=== PATIENT | female | born 1990 | race Caucasian/White ===

== ENCOUNTER 2017-01-12 21:51 | Emergency (ER) | payer MEDICAID, OTHER ==
[2017-01-12 22:43] VITALS: BP 105/70
--- NOTE | 2017-01-13 00:30 | EDM.PDOC ---
ED HPI GI/ABDOMINAL - General Chief Complaint: Gastrointestinal Problem Stated Complaint: LEFT UPPER ABD PAIN Time Seen by Provider: 01/12/17 22:49 Source: Reports: Patient History Limitations: Reports: No limitations - History of Present Illness INITIAL COMMENTS - FREE TEXT/NARRATIVE: This patient comes in complaining of bleeding ulcers. She has had gastric ulcers in the past about 2 years ago and these were confirmed by EGD. She takes pantoprazole 40 mg daily and usually does well with that. However today she said just a little bit of pain and she's had diarrhea about 5 times today all of it melanotic. She said she's been under a lot of stress today. She hasn 't vomited any blood or coffee grounds but she says she can taste blood in her mouth. She denies taking any Pepto-Bismol. 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 - Infectious Disease History Infectious Disease History: Reports: Chicken pox - Past Surgical History GI Surgical History: Reports: EGD Other Musculoskeletal Surgeries/Procedures:: ganglian cysts removed from wrists x 3 Social & Family History - Tobacco Use Smoking Status *Q: Current Every Day Smoker Years of Tobacco use: 8 Packs/Tins Daily: 0.5 Month Tobacco Last Used: 01/2015 Second Hand Smoke Exposure: No - Caffeine Use Caffeine Use: Reports: Coffee, Soda - Alcohol Use Days Per Week of Alcohol Use: 1 Number of Drinks Per Day: 2 Total Drinks Per Week: 2 - Recreational Drug Use Recreational Drug Use: No ED ROS GENERAL - Review of Systems Review Of Systems: ROS reveals no pertinent complaints other than HPI. ED EXAM, GI/ABD - Physical Exam Exam: See Below Exam Limited By: No limitations General Appearance: alert, WD/WN, no apparent distress Eyes: bilateral: normal appearance Respiratory/Chest: lungs clear Cardiovascular: regular rate, rhythm, no murmur GI/Abdominal: soft, non tender Rectal (Female) Exam: Other (Rectal vault was completely empty) Skin Exam: Warm, Dry Course - Vital Signs Last Recorded V/S: Last Vital Signs Temp 36.4 C 01/12/17 22:38 Pulse 75 01/12/17 22:38 Resp 16 01/12/17 22:38 BP 105/70 01/12/17 22:38 Pulse Ox 100 01/12/17 22:38 - Orders/Labs/Meds Labs: Laboratory Tests 01/12/17 01/12/17 01/12/17 Range/Units 23:15 23:30 23:30 WBC 8.1 (4.5-11.0) K/uL RBC 4.37 (3.30-5.50) M/uL Hgb 13.2 (12.0-15.0) g/dL Hct 39.3 (36.0-48.0) % MCV 90 (80-98) fL MCH 30 (27-31) pg MCHC 34 (32-36) % Plt Count 253 (150-400) K/uL Neut % (Auto) 51 (36-66) % Lymph % (Auto) 38 (24-44) % [place] % (Auto) 9 H (2-6) % Eos % (Auto) 1 L (2-4) % Baso % (Auto) 1 (0-1) % PT 11.0 (9.5-12.0) sec INR 1.04 (0.80-1.20) APTT 28.4 (27.0-36.0) sec Sodium 140 (140-148) mmol/L Potassium 3.7 (3.6-5.2) mmol/L Chloride 104 (100-108) mmol/L Carbon Dioxide 27 (21-32) mmol/L Anion Gap 8.6 (5.0-14.0) mmol/L BUN 11 (7-18) mg/dL Creatinine 0.9 (0.6-1.0) mg/dL Est Cr Clr Drug Dosing 100.35 mL/min Estimated GFR (MDRD) > 60 (>60) Glucose 88 (74-106) mg/dL Calcium 8.9 (8.5-10.1) mg/dL - Re-Assessments/Exams Free Text/Narrative Re-Assessment/Exam: 01/13/17 00:27 Labs were reviewed with the patient. She was never able to produce a stool sample. I spoke with Dr. Rabago and he can do an EGD on Saturday. The nurse is arranging this. I would like her to bring a stool sample for Hemoccult and H. pylori antigen. We'll place her on triple therapy with amoxicillin clarithromycin and pantoprazole. Departure - Departure Time of Disposition: 00:28 Disposition: Home, Self-Care 01 Condition: fair Clinical Impression: Bleeding gastric ulcer Forms: ED Department Discharge Additional Instructions: Bring a stool sample and will tested for blood as well as the presence of the bacteria H. pylori which is known to cause ulcers. Take the following medications, Protonix 40 mg twice daily for 14 days, amoxicillin 500 mg 2 capsules twice daily for 14 days and clarithromycin 500 mg twice daily also for [address] Rabago will plan to scope you on Saturday and this is being arranged. Return to the ER at any time if needed
== END 2017-01-13 00:45 | disposition home or self-care (01) ==
LOC: JP.ED 21:51
DX: K25.4 Chronic or unspecified gastric ulcer with hemorrhage (principal); F17.210 Nicotine dependence, cigarettes, uncomplicated; Z98.890 Other specified postprocedural states; Z79.899 Other long term (current) drug therapy; Z91.048 Other nonmedicinal substance allergy status
CPT/HCPCS: 36415; 80048; 85025; 85610; 85730; 99284

== ENCOUNTER 2017-01-14 11:36 | Day surgery (SDC) | payer MEDICAID ==
[2017-01-14] MEDS ORDERED: Lactated Ringers 1,000 ML IV SCH (12:45)
[2017-01-14] MEDS ORDERED: fentaNYL 100 MCG/2 ML SDV ONE (13:27)
[2017-01-14] MEDS ORDERED: Propofol 200 MG/20 ML SDV ONE (13:27)
[2017-01-14] MEDS ORDERED: Midazolam 1 MG/ML 2 ML SDV ONE (13:27)
[2017-01-14 15:08] VITALS: BP 110/62
--- NOTE | 2017-01-15 08:04 | OR ---
DATE OF PROCEDURE: 01/14/2017 PREOPERATIVE DIAGNOSES: History of peptic ulcer disease, and abdominal pain. POSTOPERATIVE DIAGNOSIS: History of peptic ulcer disease, abdominal pain, gastritis, and bile in the stomach. PROCEDURE: Esophagogastroduodenoscopy with gastric biopsies for CLOtest and for pathology to look for Helicobacter pylori. ANESTHESIA: IV anesthesia with monitored anesthesia care. INDICATION: This 26-year-old, white female, is referred for upper endoscopy. She has abdominal pain. Apparently, she was passing some blood earlier this weekend. She has a history of peptic ulcer disease. I counseled her for upper endoscopy with possible biopsy including risks and alternatives, and she gave her informed consent to proceed. DESCRIPTION OF PROCEDURE: The patient was placed in the left lateral decubitus position. IV anesthesia was administered by the Anesthesia Service. Time-out was held. The flexible video Olympus upper endoscope was passed through her mouth, down her esophagus, and into her stomach. We encountered some bile here, which was aspirated free. The scope was easily passed through the pylorus into the duodenum reaching its third portion. The scope was then slowly withdrawn, examining the mucosa throughout. The duodenal mucosa appeared unremarkable. No ulcers or inflammation was seen. The scope was brought up to the pylorus, there were no ulcers seen here; however, there was evidence of gastritis with erythematous streaking emanating from the pylorus. We obtained gastric biopsies for CLOtest and sent for pathology to look for Helicobacter pylori. The scope was retroflexed. The most proximal stomach appeared unremarkable. The scope was straightened and brought to the GE junction. This appeared unremarkable. The scope was then brought up through the unremarkable appearing esophagus and was removed. Ruy Trejo MD /[id number] MTDD
== END 2017-01-14 15:14 | disposition home or self-care (01) ==
LOC: JP.SDS 11:36
PROVIDERS: ATTEND Surgery
PROC: 0DB68ZX Excision of Stomach, Via Natural or Artificial Opening Endoscopic, Diagnostic (ICD-10-PCS; principal; 2017-01-14)
DX: K29.50 Unspecified chronic gastritis without bleeding (principal); A04.8 Other specified bacterial intestinal infections; Z87.11 Personal history of peptic ulcer disease; Z91.09 Other allergy status, other than to drugs and biological substances
CPT/HCPCS: 43239; 87081; J2250; J2704; J3010; J7120; 88305

== ENCOUNTER 2018-11-08 22:52 | Inpatient (IN) | payer MEDICAID ==
[2018-11-08] MEDS ORDERED: Sodium Chloride 0.9% 10 ML Syringe FLUSH PRN ×2 (23:29→23:57)
[2018-11-08] MEDS ORDERED: ePHEDrine 50 MG/ML SDV IVPUSH PRN (23:43)
[2018-11-08] MEDS ORDERED: Lactated Ringers 1,000 ML IV SCH (23:45)
[2018-11-08] MEDS ORDERED: Ondansetron 4 MG/2 ML SDV IV PRN (23:57)
--- NOTE | 2018-11-09 00:15 | PCM.LDHP ---
L&D History of Present Illness - General Date of Service: 11/09/18 Admit Problem/Dx: Patient Status Order with Admit Dx/Problem 11/08/18 23:57 Patient Status [ADT] Routine Admission Diagnosis/Problem Admission Diagnosis/Problem - Related Data Allergies/Adverse Reactions: Allergies Allergy/AdvReac Type Severity Reaction Status Date / Time nickel Allergy Severe Rash Verified 09/13/15 00:46 Home Medications: Home Meds Ondansetron HCl [Zofran] 4 mg PO Q8HR PRN 08/09/18 [History] Pnv No.121/Iron/Folic Acid [ Multivitamin Tablet] 1 each PO DAILY [History] Past Medical History - Past Health History Medical/Surgical History: Denies Medical/Surgical History HEENT History: Reports: Impaired Vision Other HEENT History: wears glasses Gastrointestinal History: Reports: PUD Other Gastrointestinal History: stomach ulcer X3 Genitourinary History: Reports: None 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 (See Below) : 1 (ASAD-11/10/2018) Para: 0 Other OB/BYN History: 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 Musculoskeletal History: Reports: None - Infectious Disease History Infectious Disease History: Reports: Chicken Pox - Past Surgical History Musculoskeletal Surgical History: Reports: Ganglion Cyst, Other (See Below) Social & Family History - Caffeine Use Caffeine Use: Reports: Soda H&P Review of Systems - Review of Systems: Review Of Systems: See Below General: Reports: No Symptoms HEENT: Reports: No Symptoms Pulmonary: Reports: No Symptoms Cardiovascular: Reports: No Symptoms Gastrointestinal: Reports: No Symptoms Genitourinary: Reports: No Symptoms Musculoskeletal: Reports: No Symptoms Skin: Reports: No Symptoms Psychiatric: Reports: No Symptoms Neurological: Reports: No Symptoms Hematologic/Lymphatic: Reports: No Symptoms Immunologic: Reports: No Symptoms L&D Exam - Exam Exam: See Below - Vital Signs Vital Signs: Last Vital Signs Temp 36.2 C 11/08/18 23:35 Pulse 74 11/08/18 23:35 Resp 20 11/08/18 23:35 BP 114/73 11/08/18 23:35 Pulse Ox - OB Specific Contraction Intensity: Strong Movement: Active Heart Tones: Present Heart Rate (FHR) Variability: Moderate (6-25 bmp) Presentation: Vertex - Rodriguez Score Rodriguez Score Cervix Position: Anterior Rodriguez Score Consistency: Soft Rodriguez Score Effacement: >80% Rodriguez Score Dilation: > 5 cm Rodriguez Score Infant's Station: -1 ,0 Rodriguez Score Total: 12 - Exam General: Alert, Oriented HEENT: PERRLA, Conjunctiva Clear, EACs Clear, EOMI, Hearing Intact, Mucosa Moist & [place], Nares Patent, Normal Nasal Septum, Posterior Pharynx Clear, TMs Clear Neck: Supple, Trachea Midline Lungs: Clear to Auscultation, Normal Respiratory Effort Cardiovascular: Regular Rate, Regular Rhythm GI/Abdominal Exam: Normal Bowel Sounds, Soft, Non-Tender, No Organomegaly, No Distention, No Abnormal Bruit, No Mass, Pelvis Stable Rectal Exam: Normal Exam, Normal Rectal Tone Genitourinary: Normal external exam, Normal bimanual exam, Normal speculum exam Back Exam: Normal Inspection, Full Range of Motion Extremities: Normal Inspection, Normal Range of Motion, Non-Tender, No Pedal Edema, Normal Capillary Refill Skin: Warm, Dry, Intact Neurological: Cranial Nerves Intact, Reflexes Equal Bilateral Psychiatric: Alert, Normal Affect, Normal Mood - Patient Data Lab Results Last 24 hrs: Laboratory Results - last 24 hr 11/08/18 11/08/18 Range/Units 23:09 23:37 WBC 13.2 H (4.5-11.0) K/uL RBC 3.53 (3.30-5.50) M/uL Hgb 11.4 L (12.0-15.0) g/dL Hct 32.4 L (36.0-48.0) % MCV 92 (80-98) fL MCH 32 H (27-31) pg MCHC 35 (32-36) % Plt Count 231 (150-400) K/uL Neut % (Auto) 72 H (36-66) % Lymph % (Auto) 20 L (24-44) % [place] % (Auto) 8 H (2-6) % Eos % (Auto) 1 L (2-4) % Baso % (Auto) 0 (0-1) % Membrane Rupture Positive H (NEGATIVE) Result Diagrams: 11/08/18 23:37 - Problem List (1) SNOMED Code(s): 25843177 ICD Code: Z34.90 - ENCNTR FOR SUPRVSN OF NORMAL , UNSP, UNSP TRIMESTER Status: Acute Current Visit: Yes Qualifiers: Weeks of gestation: 39 weeks Qualified Code(s): Z3A.39 - 39 weeks gestation of (2) Spontaneous rupture of membranes SNOMED Code(s): 107851567 ICD Code: HAD0628 - Status: Acute Current Visit: Yes (3) Labor established SNOMED Code(s): 63262263 ICD Code: [id number] - Status: Acute Current Visit: Yes Problem List Initiated/Reviewed/Updated: Yes Orders Last 24hrs: Active Orders 24 hr Category Date Time Status Patient Status [ADT] Routine ADT 11/08/18 23:57 Active Ambulate [RC] PER UNIT ROUTINE Care 11/08/18 23:57 Active Communication Order [RC] ASDIRECTED Care 11/08/18 23:57 Active Heart Tones [RC] PER UNIT ROUTINE Care 11/08/18 23:57 Active Non Stress Test [RC] Click to Edit Care 11/08/18 23:57 Active May Shower [RC] ASDIRECTED Care 11/08/18 23:57 Active Notify Provider Vital Signs [RC] PRN Care 11/08/18 23:57 Active Notify Provider [RC] PRN Care 11/08/18 23:57 Active OB Check [OM.PC] Click to Edit Care 11/08/18 23:00 Ordered Peripheral IV Care [RC] . DIRECTED Care 11/08/18 23:29 Active Up ad [place] [RC] ASDIRECTED Care 11/08/18 23:57 Active VTE/DVT Education [RC] Click to Edit Care 11/09/18 00:03 Active Vital Signs [RC] PER UNIT ROUTINE Care 11/08/18 23:57 Active DRUG SCREEN, URINE [URCHEM] Routine Lab 11/08/18 23:57 Ordered UA W/MICROSCOPIC [URIN] Routine Lab 11/08/18 23:57 Ordered Lactated Ringers [Ringers, Lactated] 1,000 ml Med 11/08/18 23:45 Active IV BOLUS Ondansetron [Zofran] Med 11/08/18 23:57 Ordered 4 mg IV Q4H PRN Oxytocin/Normal Saline [Pitocin in NS 20 Units/1,000 ML Med 11/09/18 00:07 Ordered ] 20 unit in 1,000 ml IV ONETIME Sodium Chloride 0.9% [Saline Flush] Med 11/08/18 23:29 Active 10 ml FLUSH ASDIRECTED PRN Sodium Chloride 0.9% [Saline Flush] Med 11/08/18 23:57 Ordered 10 ml FLUSH ASDIRECTED PRN ePHEDrine [ePHEDrine sulfate] Med 11/08/18 23:43 Active 5 mg IVPUSH ONETIME PRN DVT/VTE Prophylaxis Reflex [OM.PC] Routine Oth 11/08/18 23:57 Ordered Peripheral IV Insertion Adult [OM.PC] Routine Oth 11/08/18 23:29 Ordered Saline Lock Insert [OM.PC] Routine Oth 11/08/18 23:57 Ordered Resuscitation Status Routine Resus Stat 11/08/18 23:57 Ordered Medication Orders Ephedrine Sulfate (Ephedrine Sulfate) 5 mg IVPUSH ONETIME PRN PRN Reason: Hypertension Last Admin: 11/09/18 00:00 Dose: 50 mg Lactated Ringer's (Ringers, Lactated) 1,000 mls @ 999 mls/hr IV BOLUS HANNAH Stop: 11/09/18 00:46 Oxytocin/Sodium Chloride (Pitocin In Ns 20 Units/1,000 Ml) 20 unit in 1,000 mls @ 2,997 mls/hr IV ONETIME ONE; Protocol Stop: 11/09/18 00:27 Ondansetron HCl (Zofran) 4 mg IV Q4H PRN PRN Reason: Nausea/Vomiting Sodium Chloride (Saline Flush) 10 ml FLUSH ASDIRECTED PRN PRN Reason: Keep Vein Open Sodium Chloride (Saline Flush) 10 ml FLUSH ASDIRECTED PRN PRN Reason: Keep Vein Open Assessment/Plan Comment:: 11/09/2018 28 yo here at 39 6/7 weeks gestation and claims her water broke at home around 2215 Amnisure positive SVE-8/90/-1 Contractions regular FHTs category one Plan- Patient requests an epidural at this time Continue to monitor labor Continue to monitor FHTS Plan and anticipate a vaginal delivery
[2018-11-09] MEDS ORDERED: Ropivacaine 100 ML ONE (00:48)
[2018-11-09] MEDS ORDERED: ePHEDrine 50 MG/ML SDV IV PRN (00:50)
[2018-11-09] MEDS ORDERED: Naloxone 0.4 MG/ML SDV IVPUSH PRN (00:50)
[2018-11-09] MEDS ORDERED: Ropivacaine 100 ML EPIDUR SCH (00:50)
[2018-11-09] MEDS ORDERED: Lactated Ringers 1,000 ML IV SCH (01:45)
--- NOTE | 2018-11-09 02:02 | ANES ---
DATE OF SERVICE: 11/09/2018 INDICATIONS: Debora is a 28-year-old female, patient of Jennifer Mcleod, #[id number]. She is in her obstetric unit, I was requested to consult patient for OB epidural. Upon arrival, I found a 28-year-old female, healthy. I discussed with her as well as reviewed her history and found no contraindication to labor epidural placement. I discussed with her in depth the procedure as well as the risks and benefits, she was okay to proceed and consent was received. DESCRIPTION OF PROCEDURE: I had her seated at the edge of the bed. Betadine prep x3 to the lumbar region. Sterile drape was placed, 1% lidocaine skin wheal as well as deep at the L2- L3 region above the lumbar tattoo, 17-gauge Tuohy was placed to loss of resistance. Negative CSF, negative heme, and negative paresthesia. I then inserted the catheter to 13 cm. I removed the needle, secured the catheter. I applied test dose of 3 mL of 1.5% lidocaine with 1:200,000 epinephrine with negative sequelae. She tolerated the procedure quite well. The catheter was then secured to an infusion device where I was infusing 12 mL an hour of the same of 0.2% ropivacaine. Again please refer to nurse's notes for vital signs and neuro status, which were unchanged, within normal limits and again she tolerated the procedure quite well. Uriah Rodriguez CRNA /[id number]
[2018-11-09] MEDS ORDERED: Sodium Chloride 0.9% 1,000 ML IV ONE (02:35)
[2018-11-09] MEDS ORDERED: Methylergonovine 0.2 MG/1 ML Amp ONE (02:48)
[2018-11-09] MEDS ORDERED: Carboprost Tromethamine 250 MCG/1 ML Amp ONE (02:48)
[2018-11-09] MEDS ORDERED: Misoprostol 200 MCG Tab ONE (02:48)
[2018-11-09] MEDS ORDERED: Carboprost Tromethamine 250 MCG/1 ML Amp IM ONE (02:50)
[2018-11-09] MEDS ORDERED: Methylergonovine 0.2 MG/1 ML Amp IM ONE (02:50)
[2018-11-09] MEDS ORDERED: Misoprostol 200 MCG Tab PO ONE (02:50)
[2018-11-09] MEDS ORDERED: Lanolin 100% Cream 40 GM Tube TOP PRN (03:24)
[2018-11-09] MEDS ORDERED: Benzocaine 20% Top Spray 56 GM Bottle TOP PRN (03:24)
[2018-11-09] MEDS ORDERED: Witch Hazel Medicated Pads 100/Jar TOP PRN (03:24)
[2018-11-09] MEDS ORDERED: Hydrocortisone 2.5% Crm 30 GM Tube TOP PRN (03:24)
[2018-11-09] MEDS ORDERED: Ibuprofen 200 MG Tab, 24 Tab Bulk Bottle PO PRN (03:27)
[2018-11-09] MEDS ORDERED: Acetaminophen 325 MG Tab PO PRN (03:35)
--- NOTE | 2018-11-09 03:41 | PCM.DEL ---
L & D Note - General Info Date of Service: 11/09/18 - Delivery Note Labor: Spontaneous Delivery Outcome: Livebirth Delivery Method: Spontaneous Vaginal Delivery-Single Delivery Mode: Spontaneous Presentation: Left Occiput Anterior (АЛЕКСАНДР) Nuchal Cord: None Anesthesia Type: Epidural Amniotic Fluid Description: Clear Episiotomy Type: None Laceration: None Placenta: Intact, Spontaneous Cord: 3 Vessels Estimated Blood Loss: 1,000 Resuscitation Needed: No Hawks: Bulb Syringe, Stimulated, Warmed, [place] Used Score 1 min: 9 Score 5 min: 10 Post Delivery Events: Hemorrhage Second Stage Interventions: Reports: Encouragement Given, Laboring Down, Pushing Effectively, Pushing, McRobert's Position Delivery Comments (Free Text/Narrative):: 11/09/2018 28 yo delivered a viable female infant at 0235 on 11/09/2018 in АЛЕКСАНДР position over and intact perineum. was placed on prewarmed blanket on mothers abdomen. After delayed cord clamping was done cord was double clamped by provider and cut by father of the . Infant was dried, stimulated, and warmed. began to cry and pink in color. APGARS-9/10, weight-8lbs 0.2oz , length-19.9inches. Placenta then came intact, three vessel cord, after placenta was a large amount of free bleeding which then began to trickle. Pitocin was ran IV wide open at this time. Fundus was massaged and found to be boggy, bleeding continued with massage and fundus remained boggy. Quickly inspected the perineum and vaginal vault also to assure no bleeding coming from a laceration. No lacerations noted of cervix, vagina, rectum, perineum or labia. Straight cath done for 250ml of urine, bleeding continued, fundus only firm with massage, cytotec 800mg rectally placed, 2nd IV placed, methergine and hemabate also given. Fundus was massaged until remained firm and then bleeding decreased. Mother now stable, infant skin to skin with mother and stable also. EBL total-1000ml 1st [id number] 2nd [id number] 3rd [id number] - General Info Date of Service: 11/09/18 Functional Status: Reports: Pain Controlled - Review of Systems General: Reports: No Symptoms HEENT: Reports: No Symptoms Pulmonary: Reports: No Symptoms Cardiovascular: Reports: No Symptoms Gastrointestinal: Reports: No Symptoms Genitourinary: Reports: No Symptoms Musculoskeletal: Reports: No Symptoms Skin: Reports: No Symptoms Neurological: Reports: No Symptoms Psychiatric: Reports: No Symptoms - Patient Data Vitals - Most Recent: Last Vital Signs Temp 36.2 C 11/08/18 23:35 Pulse 66 11/09/18 01:29 Resp 18 11/09/18 01:29 BP 118/86 11/09/18 01:29 Pulse Ox Lab Results Last 24 Hours: Laboratory Results - last 24 hr 11/08/18 11/08/18 11/09/18 Range/Units 23:09 23:37 00:57 WBC 13.2 H (4.5-11.0) K/uL RBC 3.53 (3.30-5.50) M/uL Hgb 11.4 L (12.0-15.0) g/dL Hct 32.4 L (36.0-48.0) % MCV 92 (80-98) fL MCH 32 H (27-31) pg MCHC 35 (32-36) % Plt Count 231 (150-400) K/uL Neut % (Auto) 72 H (36-66) % Lymph % (Auto) 20 L (24-44) % Tate % (Auto) 8 H (2-6) % Eos % (Auto) 1 L (2-4) % Baso % (Auto) 0 (0-1) % Membrane Rupture Positive H (NEGATIVE) Urine Opiates Screen Negative (NEGATIVE) Ur Oxycodone Screen Negative (NEGATIVE) Urine Methadone Screen Negative (NEGATIVE) Ur Propoxyphene Screen Negative (NEGATIVE) Ur Barbiturates Screen Negative (NEGATIVE) Ur Tricyclics Screen Negative (NEGATIVE) Ur Phencyclidine Scrn Negative (NEGATIVE) Ur Amphetamine Screen Negative (NEGATIVE) U Methamphetamines Scrn Negative (NEGATIVE) Urine MDMA Screen Negative (NEGATIVE) U Benzodiazepines Scrn Negative (NEGATIVE) U Cocaine Metab Screen Negative (NEGATIVE) U Marijuana (THC) Screen Negative (NEGATIVE) 11/09/18 Range/Units 03:07 WBC (4.5-11.0) K/uL RBC (3.30-5.50) M/uL Hgb 11.2 L (12.0-15.0) g/dL Hct 31.9 L (36.0-48.0) % MCV (80-98) fL MCH (27-31) pg MCHC (32-36) % Plt Count (150-400) K/uL Neut % (Auto) (36-66) % Lymph % (Auto) (24-44) % Tate % (Auto) (2-6) % Eos % (Auto) (2-4) % Baso % (Auto) (0-1) % Membrane Rupture (NEGATIVE) Urine Opiates Screen (NEGATIVE) Ur Oxycodone Screen (NEGATIVE) Urine Methadone Screen (NEGATIVE) Ur Propoxyphene Screen (NEGATIVE) Ur Barbiturates Screen (NEGATIVE) Ur Tricyclics Screen (NEGATIVE) Ur Phencyclidine Scrn (NEGATIVE) Ur Amphetamine Screen (NEGATIVE) U Methamphetamines Scrn (NEGATIVE) Urine MDMA Screen (NEGATIVE) U Benzodiazepines Scrn (NEGATIVE) U Cocaine Metab Screen (NEGATIVE) U Marijuana (THC) Screen (NEGATIVE) Med Orders - Current: Current Medications Acetaminophen (Tylenol) 325 - 650 mg PO Q4H PRN PRN Reason: pain Benzocaine (Qkqh-P-Woevlyt 20% Moneta) 0 gm TOP Q4H PRN PRN Reason: Perineal Comfort Measure Emollient Ointment (Lansinoh Hpa) 40 gm TOP ASDIRECTED PRN PRN Reason: Sore Nipples Ephedrine Sulfate (Ephedrine Sulfate) 5 mg IVPUSH ONETIME PRN PRN Reason: Hypertension Hydrocortisone (Proctozone-Hc 2.5% Crm) 1 gm TOP ASDIRECTED PRN PRN Reason: Itching Ropivacaine (Naropin 0.2%) 100 mls @ 0 mls/hr EPIDUR ASDIRECTED HANNAH; Protocol Ibuprofen (Motrin Bulk Bottle) 600 mg PO Q6H PRN PRN Reason: Pain Naloxone HCl (Narcan) 0.1 mg IVPUSH Q5M PRN PRN Reason: IF RESP RATE LESS THAN 6 Ondansetron HCl (Zofran) 4 mg IV Q4H PRN PRN Reason: Nausea/Vomiting Sodium Chloride (Saline Flush) 10 ml FLUSH ASDIRECTED PRN PRN Reason: Keep Vein Open Sodium Chloride (Saline Flush) 10 ml FLUSH ASDIRECTED PRN PRN Reason: Keep Vein Open Witch Lizzette (Tucks) 1 pad TOP ASDIRECTED PRN PRN Reason: Hemorrhoids Discontinued Medications Carboprost Tromethamine (Hemabate Ds) Confirm Administered Dose 250 mcg .ROUTE .STK-MED ONE Stop: 11/09/18 02:49 Ephedrine Sulfate (Ephedrine Sulfate) 5 - 10 mg IV ASDIRECTED PRN PRN Reason: Systolic BP less than 100 Lactated Ringer's (Ringers, Lactated) 1,000 mls @ 999 mls/hr IV [facility]OLUS [facility] Stop: 11/09/18 00:46 Last Admin: 11/08/18 23:35 Dose: 999 mls/hr Oxytocin/Sodium Chloride (Pitocin In Ns 20 Units/1,000 Ml) 20 unit in 1,000 mls @ 2,997 mls/hr IV ONETIME ONE; Protocol Stop: 11/09/18 00:27 Last Admin: 11/09/18 01:51 Dose: 1 munits/min, 3 mls/hr Ropivacaine (Naropin 0.2%) Confirm Administered Dose 100 mls @ as directed .ROUTE .STK-MED ONE Stop: 11/09/18 00:49 Lactated Ringer's (Ringers, Lactated) 1,000 mls @ 999 mls/hr IV BOLUS [facility] Stop: 11/09/18 02:46 Last Admin: 11/09/18 00:35 Dose: 999 mls/hr Oxytocin/Sodium Chloride (Pitocin In Ns 20 Units/1,000 Ml) Confirm Administered Dose 20 unit in 1,000 mls @ as directed .ROUTE .STK-MED ONE Stop: 11/09/18 02:53 Methylergonovine Maleate (Methergine) Confirm Administered Dose 0.2 mg .ROUTE .STK-MED ONE Stop: 11/09/18 02:49 Misoprostol (Cytotec) Confirm Administered Dose 800 mcg .ROUTE .STK-MED ONE Stop: 11/09/18 02:49 - Exam General: Alert, Oriented HEENT: Pupils Equal, Pupils Reactive, EOMI, Mucous Membr. Moist/Center Neck: Supple Lungs: Clear to Auscultation, Normal Respiratory Effort Cardiovascular: Regular Rate, Regular Rhythm GI/Abdominal Exam: Normal Bowel Sounds, Soft, Non-Tender, No Organomegaly, No Distention, No Abnormal Bruit, No Mass, Pelvis Stable (Female) Exam: Normal External Exam, Normal Speculum Exam, Normal Bimanual Exam, Enlarged Uterus, Vaginal Bleeding Back Exam: Normal Inspection, Full Range of Motion Extremities: Normal Inspection, Normal Range of Motion, Non-Tender, No Pedal Edema, Normal Capillary Refill Skin: Warm, Dry, Intact Neurological: No New Focal Deficit Psy/Mental Status: Alert, Normal Affect, Normal Mood - Problem List & Annotations (1) SNOMED Code(s): 76541570 Code(s): Z34.90 - ENCNTR FOR SUPRVSN OF NORMAL , UNSP, UNSP TRIMESTER Status: Acute Current Visit: Yes Qualifiers: Weeks of gestation: 39 weeks Qualified Code(s): Z3A.39 - 39 weeks gestation of (2) Spontaneous rupture of membranes SNOMED Code(s): 323526812 Code(s): NRW3875 - Status: Acute Current Visit: Yes (3) Labor established SNOMED Code(s): 57392411 Code(s): LFP3662 - Status: Acute Current Visit: Yes (4) Vaginal delivery SNOMED Code(s): 182486848 Code(s): O80 - ENCOUNTER FOR FULL-TERM UNCOMPLICATED DELIVERY Status: Acute Current Visit: Yes (5) hemorrhage SNOMED Code(s): 22425142 Code(s): O72.1 - OTHER IMMEDIATE HEMORRHAGE Status: Acute Current Visit: Yes Qualifiers: hemorrhage type: third-stage Qualified Code(s): O72.0 - Third- stage hemorrhage - Problem List Review Problem List Initiated/Reviewed/Updated: Yes - My Orders Last 24 Hours: My Active Orders 11/08/18 23:00 OB Check [OM.PC] Click to Edit 11/08/18 23:29 Peripheral IV Care [RC] . DIRECTED Sodium Chloride 0.9% [Saline Flush] 10 ml FLUSH ASDIRECTED PRN Peripheral IV Insertion Adult [OM.PC] Routine 11/08/18 23:43 ePHEDrine [ePHEDrine sulfate] 5 mg IVPUSH ONETIME PRN 11/08/18 23:57 Patient Status [ADT] Routine Ambulate [RC] PER UNIT ROUTINE Communication Order [RC] ASDIRECTED Non Stress Test [RC] Click to Edit May Shower [RC] ASDIRECTED Notify Provider Vital Signs [RC] PRN Notify Provider [RC] PRN Up ad Taylor [RC] ASDIRECTED Vital Signs [RC] PER UNIT ROUTINE Ondansetron [Zofran] 4 mg IV Q4H PRN Sodium Chloride 0.9% [Saline Flush] 10 ml FLUSH ASDIRECTED PRN DVT/VTE Prophylaxis Reflex [OM.PC] Routine Saline Lock Insert [OM.PC] Routine Resuscitation Status Routine 11/09/18 00:03 VTE/DVT Education [RC] Click to Edit 11/09/18 00:50 Naloxone [Narcan] 0.1 mg IVPUSH Q5M PRN Ropivacaine [Naropin 0.2%] 100 ml EPIDUR ASDIRECTED 11/09/18 03:24 Patient Status [ADT] Routine Vital Signs [RC] PFP Benzocaine [Uozh-O-Qrhzgvt 20% Moneta] See Dose Instructions TOP Q4H PRN Hydrocortisone [Proctozone-HC 2.5% Crm] 1 gm TOP ASDIRECTED PRN Lanolin [Lansinoh HPA] 40 gm TOP ASDIRECTED PRN Witch Lizzette [Tucks] 1 pad TOP ASDIRECTED PRN Assess Lochia [WOMSER] Per Unit Routine Assess Uterine Involution [WOMSER] Per Unit Routine 11/09/18 03:25 Perineal Care [OM.PC] Per Unit Routine Sitz Bath [OM.PC] Per Unit Routine 11/09/18 03:27 Ibuprofen [Motrin Bulk Bottle] 600 mg PO Q6H PRN 11/09/18 03:35 Acetaminophen [Tylenol] 325 - 650 mg PO Q4H PRN 11/09/18 12:00 CBC WITH AUTO DIFF [HEME] Routine 11/09/18 Breakfast Regular Diet [DIET] - Assessment Assessment:: 11/09/2018 28 yo G1 now P1 Hemorrhage in 3rd stage Labs-A negative, Hep B neg, Hep C neg, HIV neg, RPR nonreactive, GBS negative - Plan Plan:: 11/09/2018 28 yo here at 39 6/7 weeks gestation and claims her water broke at home around 2215 Amnisure positive SVE-8/90/-1 Contractions regular FHTs category one Plan- Patient requests an epidural at this time Continue to monitor labor Continue to monitor FHTS Plan and anticipate a vaginal delivery 11/09/2018 CBC at noon today Monitor her fundus and bleeding closely Monitor VS closely Routine cares Encourage and support
[2018-11-09] MEDS ORDERED: Acetaminophen 325 MG Tab, 50 Tab Bulk Bottle PO PRN (07:36)
[2018-11-09] MEDS: Ferrous Sulfate 325 MG Tab PO SCH (17:35)
--- NOTE | 2018-11-10 07:54 | PCM.PN ---
<Chaya Dudley - Last Filed: 11/10/18 07:49> - General Info Date of Service: 11/10/18 (PP day 1) Subjective Update: 11/10/18 Doing well PP, hgb 9.4. Patient feels slightly weak after delivery but is not dizzy, pale, or lightheaded. Her bleeding is reported as light and slowing down. She has no pain. Nipples are intact. Rhogam has been given. Functional Status: Reports: Pain Controlled - Review of Systems General: Reports: No Symptoms HEENT: Reports: No Symptoms Pulmonary: Reports: No Symptoms Cardiovascular: Reports: No Symptoms. Denies: Dyspnea on Exertion, Lightheadedness Gastrointestinal: Reports: No Symptoms Genitourinary: Reports: No Symptoms Musculoskeletal: Reports: No Symptoms Skin: Reports: No Symptoms Neurological: Reports: No Symptoms Psychiatric: Reports: No Symptoms - Patient Data Vitals - Most Recent: Last Vital Signs Temp 36.2 C 11/10/18 07:23 Pulse 73 11/10/18 07:23 Resp 18 11/10/18 07:23 BP 116/73 11/10/18 07:23 Pulse Ox 97 11/10/18 07:23 I&O - Last 24 Hours: Intake & Output 11/09/18 11/10/18 11/10/18 22:59 06:59 14:59 Intake Total 120 1800 Balance 120 1800 Lab Results Last 24 Hours: Laboratory Results - last 24 hr 11/09/18 11/09/18 11/10/18 Range/Units 12:05 12:05 05:40 WBC 13.0 H 10.7 (4.5-11.0) K/uL RBC 3.04 L 3.01 L (3.30-5.50) M/uL Hgb 9.5 L 9.4 L (12.0-15.0) g/dL Hct 28.2 L 28.3 L (36.0-48.0) % MCV 93 94 (80-98) fL MCH 31 31 (27-31) pg MCHC 34 33 (32-36) % Plt Count 194 216 (150-400) K/uL Neut % (Auto) 77 H 64 (36-66) % Lymph % (Auto) 14 L 27 (24-44) % [place] % (Auto) 9 H 8 H (2-6) % Eos % (Auto) 0 L 1 L (2-4) % Baso % (Auto) 0 0 (0-1) % Blood Type A NEGATIVE Gel Antibody Screen Positive A* Antibody Identification Cancelled Rhogam Indicated Yes, baby rh pos Med Orders - Current: Current Medications Acetaminophen (Tylenol Bulk Bottle) 325 - 650 mg PO Q4H PRN PRN Reason: PAIN Last Admin: 11/09/18 09:29 Dose: 650 mg Benzocaine (Ydil-W-Scgaktr 20% Dodge) 0 gm TOP Q4H PRN PRN Reason: Perineal Comfort Measure Last Admin: 11/09/18 09:29 Dose: 1 spray Emollient Ointment (Lansinoh Hpa) 40 gm TOP ASDIRECTED PRN PRN Reason: Sore Nipples Last Admin: 11/09/18 09:30 Dose: 1 applic Ferrous Sulfate (Ferrous Sulfate) 325 mg PO BIDMEALS HANNAH Last Admin: 11/09/18 17:35 Dose: 325 mg Hydrocortisone (Proctozone-Hc 2.5% Crm) 1 gm TOP ASDIRECTED PRN PRN Reason: Itching Ibuprofen (Motrin Bulk Bottle) 600 mg PO Q6H PRN PRN Reason: Pain Last Admin: 11/09/18 09:28 Dose: 600 mg Naloxone HCl (Narcan) 0.1 mg IVPUSH Q5M PRN PRN Reason: IF RESP RATE LESS THAN 6 Ondansetron HCl (Zofran) 4 mg IV Q4H PRN PRN Reason: Nausea/Vomiting Sodium Chloride (Saline Flush) 10 ml FLUSH ASDIRECTED PRN PRN Reason: Keep Vein Open Witpedro Crocker (Tucks) 1 pad TOP ASDIRECTED PRN PRN Reason: Hemorrhoids Discontinued Medications Acetaminophen (Tylenol) 325 - 650 mg PO Q4H PRN PRN Reason: pain Carboprost Tromethamine (Hemabate Ds) Confirm Administered Dose 250 mcg .ROUTE .STK-MED ONE Stop: 11/09/18 02:49 Last Admin: 11/09/18 02:53 Dose: 250 mcg Carboprost Tromethamine (Hemabate Ds) 250 mcg IM ONETIME ONE Stop: 11/09/18 02:51 Last Admin: 11/09/18 10:21 Dose: Not Given Ephedrine Sulfate (Ephedrine Sulfate) 5 mg IVPUSH ONETIME PRN PRN Reason: Hypertension Ephedrine Sulfate (Ephedrine Sulfate) 5 - 10 mg IV ASDIRECTED PRN PRN Reason: Systolic BP less than 100 Lactated Ringer's (Ringers, Lactated) 1,000 mls @ 999 mls/hr IV [facility] Stop: 11/09/18 00:46 Last Admin: 11/08/18 23:35 Dose: 999 mls/hr Oxytocin/Sodium Chloride (Pitocin In Ns 20 Units/1,000 Ml) 20 unit in 1,000 mls @ 2,997 mls/hr IV ONETIME ONE; Protocol Stop: 11/09/18 00:27 Last Titration: 11/09/18 02:55 Dose: 999 mls/hr Ropivacaine (Naropin 0.2%) 100 mls @ 0 mls/hr EPIDUR ASDIRECTED HANNAH; Protocol Ropivacaine (Naropin 0.2%) Confirm Administered Dose 100 mls @ as directed .ROUTE .STK-MED ONE Stop: 11/09/18 00:49 Lactated Ringer's (Ringers, Lactated) 1,000 mls @ 999 mls/hr IV [facility] Stop: 11/09/18 02:46 Last Admin: 11/09/18 00:35 Dose: 999 mls/hr Oxytocin/Sodium Chloride (Pitocin In Ns 20 Units/1,000 Ml) Confirm Administered Dose 20 unit in 1,000 mls @ as directed .ROUTE .STK-MED ONE Stop: 11/09/18 02:53 Last Admin: 11/09/18 06:52 Dose: Not Given Sodium Chloride (Normal Saline) 1,000 mls @ 999 mls/hr IV .BOLUS ONE Stop: 11/09/18 03:35 Last Admin: 11/09/18 02:56 Dose: 999 mls/hr Methylergonovine Maleate (Methergine) Confirm Administered Dose 0.2 mg .ROUTE .STK-MED ONE Stop: 11/09/18 02:49 Last Admin: 11/09/18 02:51 Dose: 0.2 mg Methylergonovine Maleate (Methergine) 0.2 mg IM ONETIME ONE Stop: 11/09/18 02:51 Last Admin: 11/09/18 10:21 Dose: Not Given Misoprostol (Cytotec) Confirm Administered Dose 800 mcg .ROUTE .STK-MED ONE Stop: 11/09/18 02:49 Last Admin: 11/09/18 02:48 Dose: 800 mcg Misoprostol (Cytotec) 800 mcg PO ONETIME ONE Stop: 11/09/18 02:51 Last Admin: 11/09/18 10:21 Dose: Not Given Sodium Chloride (Saline Flush) 10 ml FLUSH ASDIRECTED PRN PRN Reason: Keep Vein Open - Exam General: Alert, Oriented HEENT: Pupils Equal, Pupils Reactive, Mucous Membr. Moist/[place] Neck: Supple Lungs: Clear to Auscultation, Normal Respiratory Effort Cardiovascular: Regular Rate, Regular Rhythm GI/Abdominal Exam: Normal Bowel Sounds, Soft, Non-Tender (Female) Exam: Enlarged Uterus, Vaginal Bleeding. No: Vaginal Tears Back Exam: Normal Inspection, Full Range of Motion Extremities: Normal Inspection, Normal Range of Motion, Non-Tender, No Pedal Edema Skin: Warm, Dry, Intact Wound/Incisions: Healing Well Neurological: No New Focal Deficit Psy/Mental Status: Alert, Normal Affect, Normal Mood - Problem List Review Problem List Initiated/Reviewed/Updated: Yes - Assessment Assessment:: 11/09/2018 28 yo G1 now P1 Hemorrhage in 3rd stage Labs-A negative, Hep B neg, Hep C neg, HIV neg, RPR nonreactive, GBS negative 11/10/18 28 yo day going well Hgb 9.4, iron started, feels weak but denies dizziness, lightheadedness VS stable A-, rhogam given - Plan Plan:: 11/09/2018 28 yo here at 39 6/7 weeks gestation and claims her water broke at home around 2215 Amnisure positive SVE-/-1 Contractions regular FHTs category one Plan- Patient requests an epidural at this time Continue to monitor labor Continue to monitor FHTS Plan and anticipate a vaginal delivery 11/09/2018 CBC at noon today Monitor her fundus and bleeding closely Monitor VS closely Routine cares Encourage and support 11/10/18 Continue cares support Continue to monitor bleeding Discharge home tomorrow am <Nathalie Calhoun - Last Filed: 11/10/18 12:12> - Patient Data Vitals - Most Recent: Last Vital Signs Temp 97.2 F 11/10/18 07:23 Pulse 73 11/10/18 07:23 Resp 18 11/10/18 07:23 BP 116/73 11/10/18 07:23 Pulse Ox 97 11/10/18 07:23 I&O - Last 24 Hours: Intake & Output 11/09/18 11/10/18 11/10/18 22:59 06:59 14:59 Intake Total 120 1800 Balance 120 1800 Lab Results Last 24 Hours: Laboratory Results - last 24 hr 11/09/18 11/09/18 11/10/18 Range/Units 12:05 12:05 05:40 WBC 13.0 H 10.7 (4.5-11.0) K/uL RBC 3.04 L 3.01 L (3.30-5.50) M/uL Hgb 9.5 L 9.4 L (12.0-15.0) g/dL Hct 28.2 L 28.3 L (36.0-48.0) % MCV 93 94 (80-98) fL MCH 31 31 (27-31) pg MCHC 34 33 (32-36) % Plt Count 194 216 (150-400) K/uL Neut % (Auto) 77 H 64 (36-66) % Lymph % (Auto) 14 L 27 (24-44) % Hardin % (Auto) 9 H 8 H (2-6) % Eos % (Auto) 0 L 1 L (2-4) % Baso % (Auto) 0 0 (0-1) % Blood Type A NEGATIVE Gel Antibody Screen Positive A* Antibody Identification Cancelled Rhogam Indicated Yes, baby rh pos Med Orders - Current: Current Medications Acetaminophen (Tylenol Bulk Bottle) 325 - 650 mg PO Q4H PRN PRN Reason: PAIN Last Admin: 11/09/18 09:29 Dose: 650 mg Benzocaine (Rtqk-C-Vrnobyk 20% Dodge) 0 gm TOP Q4H PRN PRN Reason: Perineal Comfort Measure Last Admin: 11/09/18 09:29 Dose: 1 spray Emollient Ointment (Lansinoh Hpa) 40 gm TOP ASDIRECTED PRN PRN Reason: Sore Nipples Last Admin: 11/09/18 09:30 Dose: 1 applic Ferrous Sulfate (Ferrous Sulfate) 325 mg PO BIDMEALS HANNAH Last Admin: 11/10/18 09:40 Dose: 325 mg Hydrocortisone (Proctozone-Hc 2.5% Crm) 1 gm TOP ASDIRECTED PRN PRN Reason: Itching Ibuprofen (Motrin Bulk Bottle) 600 mg PO Q6H PRN PRN Reason: Pain Last Admin: 11/09/18 09:28 Dose: 600 mg Naloxone HCl (Narcan) 0.1 mg IVPUSH Q5M PRN PRN Reason: IF RESP RATE LESS THAN 6 Ondansetron HCl (Zofran) 4 mg IV Q4H PRN PRN Reason: Nausea/Vomiting Sodium Chloride (Saline Flush) 10 ml FLUSH ASDIRECTED PRN PRN Reason: Keep Vein Open Keesha Crocker (Tucks) 1 pad TOP ASDIRECTED PRN PRN Reason: Hemorrhoids Discontinued Medications Acetaminophen (Tylenol) 325 - 650 mg PO Q4H PRN PRN Reason: pain Carboprost Tromethamine (Hemabate Ds) Confirm Administered Dose 250 mcg .ROUTE .STK-MED ONE Stop: 11/09/18 02:49 Last Admin: 11/09/18 02:53 Dose: 250 mcg Carboprost Tromethamine (Hemabate Ds) 250 mcg IM ONETIME ONE Stop: 11/09/18 02:51 Last Admin: 11/09/18 10:21 Dose: Not Given Ephedrine Sulfate (Ephedrine Sulfate) 5 mg IVPUSH ONETIME PRN PRN Reason: Hypertension Ephedrine Sulfate (Ephedrine Sulfate) 5 - 10 mg IV ASDIRECTED PRN PRN Reason: Systolic BP less than 100 Lactated Ringer's (Ringers, Lactated) 1,000 mls @ 999 mls/hr IV BOLUS [facility]NAH Stop: 11/09/18 00:46 Last Admin: 11/08/18 23:35 Dose: 999 mls/hr Oxytocin/Sodium Chloride (Pitocin In Ns 20 Units/1,000 Ml) 20 unit in 1,000 mls @ 2,997 mls/hr IV ONETIME ONE; Protocol Stop: 11/09/18 00:27 Last Titration: 11/09/18 02:55 Dose: 999 mls/hr Ropivacaine (Naropin 0.2%) 100 mls @ 0 mls/hr EPIDUR ASDIRECTED HANNAH; Protocol Ropivacaine (Naropin 0.2%) Confirm Administered Dose 100 mls @ as directed .ROUTE .STK-MED ONE Stop: 11/09/18 00:49 Lactated Ringer's (Ringers, Lactated) 1,000 mls @ 999 mls/hr IV [facility] Stop: 11/09/18 02:46 Last Admin: 11/09/18 00:35 Dose: 999 mls/hr Oxytocin/Sodium Chloride (Pitocin In Ns 20 Units/1,000 Ml) Confirm Administered Dose 20 unit in 1,000 mls @ as directed .ROUTE .STK-MED ONE Stop: 11/09/18 02:53 Last Admin: 11/09/18 06:52 Dose: Not Given Sodium Chloride (Normal Saline) 1,000 mls @ 999 mls/hr IV .BOLUS ONE Stop: 11/09/18 03:35 Last Admin: 11/09/18 02:56 Dose: 999 mls/hr Methylergonovine Maleate (Methergine) Confirm Administered Dose 0.2 mg .ROUTE .STK-MED ONE Stop: 11/09/18 02:49 Last Admin: 11/09/18 02:51 Dose: 0.2 mg Methylergonovine Maleate (Methergine) 0.2 mg IM ONETIME ONE Stop: 11/09/18 02:51 Last Admin: 11/09/18 10:21 Dose: Not Given Misoprostol (Cytotec) Confirm Administered Dose 800 mcg .ROUTE .STK-MED ONE Stop: 11/09/18 02:49 Last Admin: 11/09/18 02:48 Dose: 800 mcg Misoprostol (Cytotec) 800 mcg PO ONETIME ONE Stop: 11/09/18 02:51 Last Admin: 11/09/18 10:21 Dose: Not Given Sodium Chloride (Saline Flush) 10 ml FLUSH ASDIRECTED PRN PRN Reason: Keep Vein Open - Plan Plan:: I personally performed or re-performed the physical examination and medical decision making. I have verified all student documentation or findings, including history, physical exam and/or medical decision making. Nathalie Calhoun APRN, EDDIE, CFNP
[2018-11-10] MEDS: Ferrous Sulfate 325 MG Tab PO SCH ×2 (09:40→17:35)
[2018-11-11] MEDS: Ferrous Sulfate 325 MG Tab PO SCH (07:53)
[2018-11-11 08:04] VITALS: BP 110/70
--- NOTE | 2018-11-11 08:15 | PCM.PNPP ---
<Chaya Dudley - Last Filed: 11/11/18 08:11> - General Info Date of Service: 11/11/18 (Discharge) Functional Status: Reports: Pain Controlled - Review of Systems General: Reports: No Symptoms HEENT: Reports: No Symptoms Pulmonary: Reports: No Symptoms Cardiovascular: Reports: No Symptoms Gastrointestinal: Reports: No Symptoms Genitourinary: Reports: No Symptoms Musculoskeletal: Reports: No Symptoms Skin: Reports: No Symptoms Neurological: Reports: No Symptoms Psychiatric: Reports: No Symptoms - General Info Date of Service: 11/11/18 - Patient Data Vital Signs - Most Recent: Last Vital Signs Temp 35.9 C 11/11/18 08:03 Pulse 72 11/11/18 08:03 Resp 16 11/11/18 08:03 BP 110/70 11/11/18 08:03 Pulse Ox 96 11/11/18 08:03 I&O - Last 24 Hours: Intake & Output 11/10/18 11/11/18 11/11/18 22:59 06:59 14:59 Intake Total 900 950 Balance 900 950 Lab Results - Last 24 Hours: Laboratory Results - last 24 hr 11/09/18 Range/Units 12:05 Screen Negative Med Orders - Current: Current Medications Acetaminophen (Tylenol Bulk Bottle) 325 - 650 mg PO Q4H PRN PRN Reason: PAIN Last Admin: 11/09/18 09:29 Dose: 650 mg Benzocaine (Xpgx-X-Xlzarux 20% [place]) 0 gm TOP Q4H PRN PRN Reason: Perineal Comfort Measure Last Admin: 11/09/18 09:29 Dose: 1 spray Emollient Ointment (Lansinoh Hpa) 40 gm TOP ASDIRECTED PRN PRN Reason: Sore Nipples Last Admin: 11/09/18 09:30 Dose: 1 applic Ferrous Sulfate (Ferrous Sulfate) 325 mg PO BIDMEALS HANNAH Last Admin: 11/11/18 07:53 Dose: 325 mg Hydrocortisone (Proctozone-Hc 2.5% Crm) 1 gm TOP ASDIRECTED PRN PRN Reason: Itching Ibuprofen (Motrin Bulk Bottle) 600 mg PO Q6H PRN PRN Reason: Pain Last Admin: 11/09/18 09:28 Dose: 600 mg Ondansetron HCl (Zofran) 4 mg IV Q4H PRN PRN Reason: Nausea/Vomiting Sodium Chloride (Saline Flush) 10 ml FLUSH ASDIRECTED PRN PRN Reason: Keep Vein Open Witch Lizzette (Tucks) 1 pad TOP ASDIRECTED PRN PRN Reason: Hemorrhoids Discontinued Medications Acetaminophen (Tylenol) 325 - 650 mg PO Q4H PRN PRN Reason: pain Carboprost Tromethamine (Hemabate Ds) Confirm Administered Dose 250 mcg .ROUTE .STK-MED ONE Stop: 11/09/18 02:49 Last Admin: 11/09/18 02:53 Dose: 250 mcg Carboprost Tromethamine (Hemabate Ds) 250 mcg IM ONETIME ONE Stop: 11/09/18 02:51 Last Admin: 11/09/18 10:21 Dose: Not Given Ephedrine Sulfate (Ephedrine Sulfate) 5 mg IVPUSH ONETIME PRN PRN Reason: Hypertension Ephedrine Sulfate (Ephedrine Sulfate) 5 - 10 mg IV ASDIRECTED PRN PRN Reason: Systolic BP less than 100 Lactated Ringer's (Ringers, Lactated) 1,000 mls @ 999 mls/hr IV [facility] Stop: 11/09/18 00:46 Last Admin: 11/08/18 23:35 Dose: 999 mls/hr Oxytocin/Sodium Chloride (Pitocin In Ns 20 Units/1,000 Ml) 20 unit in 1,000 mls @ 2,997 mls/hr IV ONETIME ONE; Protocol Stop: 11/09/18 00:27 Last Titration: 11/09/18 02:55 Dose: 999 mls/hr Ropivacaine (Naropin 0.2%) 100 mls @ 0 mls/hr EPIDUR ASDIRECTED HANNAH; Protocol Ropivacaine (Naropin 0.2%) Confirm Administered Dose 100 mls @ as directed .ROUTE .STK-MED ONE Stop: 11/09/18 00:49 Lactated Ringer's (Ringers, Lactated) 1,000 mls @ 999 mls/hr IV [facility] Stop: 11/09/18 02:46 Last Admin: 11/09/18 00:35 Dose: 999 mls/hr Oxytocin/Sodium Chloride (Pitocin In Ns 20 Units/1,000 Ml) Confirm Administered Dose 20 unit in 1,000 mls @ as directed .ROUTE .STK-MED ONE Stop: 11/09/18 02:53 Last Admin: 11/09/18 06:52 Dose: Not Given Sodium Chloride (Normal Saline) 1,000 mls @ 999 mls/hr IV .BOLUS ONE Stop: 11/09/18 03:35 Last Admin: 11/09/18 02:56 Dose: 999 mls/hr Methylergonovine Maleate (Methergine) Confirm Administered Dose 0.2 mg .ROUTE .STK-MED ONE Stop: 11/09/18 02:49 Last Admin: 11/09/18 02:51 Dose: 0.2 mg Methylergonovine Maleate (Methergine) 0.2 mg IM ONETIME ONE Stop: 11/09/18 02:51 Last Admin: 11/09/18 10:21 Dose: Not Given Misoprostol (Cytotec) Confirm Administered Dose 800 mcg .ROUTE .STK-MED ONE Stop: 11/09/18 02:49 Last Admin: 11/09/18 02:48 Dose: 800 mcg Misoprostol (Cytotec) 800 mcg PO ONETIME ONE Stop: 11/09/18 02:51 Last Admin: 11/09/18 10:21 Dose: Not Given Naloxone HCl (Narcan) 0.1 mg IVPUSH Q5M PRN PRN Reason: IF RESP RATE LESS THAN 6 Sodium Chloride (Saline Flush) 10 ml FLUSH ASDIRECTED PRN PRN Reason: Keep Vein Open - Interaction Infant Disposition, : in Room with Family Infant Interaction: Holding Infant Infant Feeding: Breastfed Infant; Nursed Well Support Person: Significant Other - Recovery Exam Fundal Tone: Firm Fundal Level: At Umbilicus Fundal Placement: Midline Lochia Amount: Small Lochia Color: Rubra/Red Perineum Description: Intact, Minimal Bruising/Swelling Episiotomy/Laceration: None Bladder Status: Voiding - Exam General: Alert, Oriented HEENT: Pupils Equal Neck: Supple Lungs: Clear to Auscultation, Normal Respiratory Effort Cardiovascular: Regular Rate, Regular Rhythm GI/Abdominal Exam: Normal Bowel Sounds, Soft, Non-Tender, No Organomegaly, No Distention, No Abnormal Bruit, No Mass, Pelvis Stable Extremities: Normal Inspection, Normal Range of Motion, Non-Tender, No Pedal Edema, Normal Capillary Refill Skin: Warm, Dry, Intact Wound/Incisions: Healing Well Neurological: No New Focal Deficit Psy/Mental Status: Alert, Normal Affect, Normal Mood - Problem List & Annotations (1) hemorrhage SNOMED Code(s): 27530991 Code(s): O72.1 - OTHER IMMEDIATE HEMORRHAGE Status: Acute Current Visit: Yes Qualifiers: hemorrhage type: third-stage Qualified Code(s): O72.0 - Third- stage hemorrhage (2) SNOMED Code(s): 63970966 Code(s): Z34.90 - ENCNTR FOR SUPRVSN OF NORMAL , UNSP, UNSP TRIMESTER Status: Acute Current Visit: Yes Qualifiers: Weeks of gestation: 39 weeks Qualified Code(s): Z3A.39 - 39 weeks gestation of (3) Spontaneous rupture of membranes SNOMED Code(s): 529705679 Code(s): AIV9050 - Status: Acute Current Visit: Yes (4) Vaginal delivery SNOMED Code(s): 905964203 Code(s): O80 - ENCOUNTER FOR FULL-TERM UNCOMPLICATED DELIVERY Status: Acute Current Visit: Yes (5) Need for rhogam due to Rh negative mother SNOMED Code(s): 688715874, 876994147 Code(s): Z29.13 - ENCOUNTER FOR PROPHYLACTIC RHO(D) IMMUNE GLOBULIN Status : Acute Current Visit: No (6) Placenta, abnormal SNOMED Code(s): 865470186 Code(s): O43.109 - MALFORMATION OF PLACENTA, UNSPECIFIED, UNSPECIFIED TRIMESTER Status: Acute Current Visit: No (7) Mother currently breast-feeding SNOMED Code(s): 292298708 Code(s): UGA7508 - Status: Acute Current Visit: Yes - Problem List Review Problem List Initiated/Reviewed/Updated: Yes - My Orders Last 24 Hours: My Active Orders 11/10/18 08:39 Peripheral IV Discontinue [OM.PC] Routine 11/11/18 08:11 Ready for Discharge [RC] PER UNIT ROUTINE - Assessment Assessment:: 11/09/2018 28 yo G1 now P1 Hemorrhage in 3rd stage Labs-A negative, Hep B neg, Hep C neg, HIV neg, RPR nonreactive, GBS negative 11/10/18 28 yo day going well Hgb 9.4, iron started, feels weak but denies dizziness, lightheadedness VS stable A-, rhogam given 11/11/18 2 days FF, light bleeding, no clots Milk is starting to come in, breasts feel full going very well Asymptomatic with hemoglobin 9.4 yesterday Ready to go home - Plan Plan:: I personally performed or re-performed the physical examination and medical decision making. I have verified all student documentation or findings, including history, physical exam and/or medical decision making. Nathalie Calhoun APRN, CNM, DINA 11/11/18 Discharge home today 6 week visit support as needed Tylenol and Ibuprofen for pain control at home Patient will let Nathalie or Jennifer know if she has any signs of a stomach ulcer again <Nathalie Calhoun - Last Filed: 11/11/18 08:19> - Patient Data Vital Signs - Most Recent: Last Vital Signs Temp 96.7 F 11/11/18 08:03 Pulse 72 11/11/18 08:03 Resp 16 11/11/18 08:03 BP 110/70 11/11/18 08:03 Pulse Ox 96 11/11/18 08:03 I&O - Last 24 Hours: Intake & Output 11/10/18 11/11/18 11/11/18 22:59 06:59 14:59 Intake Total 900 950 Balance 900 950 Lab Results - Last 24 Hours: Laboratory Results - last 24 hr 11/09/18 Range/Units 12:05 Screen Negative Med Orders - Current: Current Medications Acetaminophen (Tylenol Bulk Bottle) 325 - 650 mg PO Q4H PRN PRN Reason: PAIN Last Admin: 11/09/18 09:29 Dose: 650 mg Benzocaine (Cidj-T-Kntcxun 20% [place]) 0 gm TOP Q4H PRN PRN Reason: Perineal Comfort Measure Last Admin: 11/09/18 09:29 Dose: 1 spray Emollient Ointment (Lansinoh Hpa) 40 gm TOP ASDIRECTED PRN PRN Reason: Sore Nipples Last Admin: 11/09/18 09:30 Dose: 1 applic Ferrous Sulfate (Ferrous Sulfate) 325 mg PO BIDMEALS HANNAH Last Admin: 11/11/18 07:53 Dose: 325 mg Hydrocortisone (Proctozone-Hc 2.5% Crm) 1 gm TOP ASDIRECTED PRN PRN Reason: Itching Ibuprofen (Motrin Bulk Bottle) 600 mg PO Q6H PRN PRN Reason: Pain Last Admin: 11/09/18 09:28 Dose: 600 mg Ondansetron HCl (Zofran) 4 mg IV Q4H PRN PRN Reason: Nausea/Vomiting Sodium Chloride (Saline Flush) 10 ml FLUSH ASDIRECTED PRN PRN Reason: Keep Vein Open Witch Lizzette (Tucks) 1 pad TOP ASDIRECTED PRN PRN Reason: Hemorrhoids Discontinued Medications Acetaminophen (Tylenol) 325 - 650 mg PO Q4H PRN PRN Reason: pain Carboprost Tromethamine (Hemabate Ds) Confirm Administered Dose 250 mcg .ROUTE .STK-MED ONE Stop: 11/09/18 02:49 Last Admin: 11/09/18 02:53 Dose: 250 mcg Carboprost Tromethamine (Hemabate Ds) 250 mcg IM ONETIME ONE Stop: 11/09/18 02:51 Last Admin: 11/09/18 10:21 Dose: Not Given Ephedrine Sulfate (Ephedrine Sulfate) 5 mg IVPUSH ONETIME PRN PRN Reason: Hypertension Ephedrine Sulfate (Ephedrine Sulfate) 5 - 10 mg IV ASDIRECTED PRN PRN Reason: Systolic BP less than 100 Lactated Ringer's (Ringers, Lactated) 1,000 mls @ 999 mls/hr IV BOLUS HANNAH Stop: 11/09/18 00:46 Last Admin: 11/08/18 23:35 Dose: 999 mls/hr Oxytocin/Sodium Chloride (Pitocin In Ns 20 Units/1,000 Ml) 20 unit in 1,000 mls @ 2,997 mls/hr IV ONETIME ONE; Protocol Stop: 11/09/18 00:27 Last Titration: 11/09/18 02:55 Dose: 999 mls/hr Ropivacaine (Naropin 0.2%) 100 mls @ 0 mls/hr EPIDUR ASDIRECTED HANNAH; Protocol Ropivacaine (Naropin 0.2%) Confirm Administered Dose 100 mls @ as directed .ROUTE .STK-MED ONE Stop: 11/09/18 00:49 Lactated Ringer's (Ringers, Lactated) 1,000 mls @ 999 mls/hr IV BOLUS [facility] Stop: 11/09/18 02:46 Last Admin: 11/09/18 00:35 Dose: 999 mls/hr Oxytocin/Sodium Chloride (Pitocin In Ns 20 Units/1,000 Ml) Confirm Administered Dose 20 unit in 1,000 mls @ as directed .ROUTE .STK-MED ONE Stop: 11/09/18 02:53 Last Admin: 11/09/18 06:52 Dose: Not Given Sodium Chloride (Normal Saline) 1,000 mls @ 999 mls/hr IV .BOLUS ONE Stop: 11/09/18 03:35 Last Admin: 11/09/18 02:56 Dose: 999 mls/hr Methylergonovine Maleate (Methergine) Confirm Administered Dose 0.2 mg .ROUTE .STK-MED ONE Stop: 11/09/18 02:49 Last Admin: 11/09/18 02:51 Dose: 0.2 mg Methylergonovine Maleate (Methergine) 0.2 mg IM ONETIME ONE Stop: 11/09/18 02:51 Last Admin: 11/09/18 10:21 Dose: Not Given Misoprostol (Cytotec) Confirm Administered Dose 800 mcg .ROUTE .STK-MED ONE Stop: 11/09/18 02:49 Last Admin: 11/09/18 02:48 Dose: 800 mcg Misoprostol (Cytotec) 800 mcg PO ONETIME ONE Stop: 11/09/18 02:51 Last Admin: 11/09/18 10:21 Dose: Not Given Naloxone HCl (Narcan) 0.1 mg IVPUSH Q5M PRN PRN Reason: IF RESP RATE LESS THAN 6 Sodium Chloride (Saline Flush) 10 ml FLUSH ASDIRECTED PRN PRN Reason: Keep Vein Open - Plan Plan:: I personally performed or re-performed the physical examination and medical decision making. I have verified all student documentation or findings, including history, physical exam and/or medical decision making. Nathalie Calhoun APRN, CNM, CFNP
== END 2018-11-11 11:35 | disposition home or self-care (01) | DRG 807 ==
LOC: JP.OBCHECK 22:52 → JP.OB 23:00 → OBSVTOIN 11-09 02:35 → JP.MS 11-09 03:24
PROVIDERS: ADMIT Advanced Practice Midwife; ATTEND Advanced Practice Midwife
PROC: 10E0XZZ Delivery of Products of Conception, External Approach (ICD-10-PCS; principal; 2018-11-09)
PROC: 3E0234Z Introduction of Serum, Toxoid and Vaccine into Muscle, Percutaneous Approach (ICD-10-PCS; 2018-11-09)
DX: O72.0 Third-stage hemorrhage (principal); Z37.0 Single live birth; Z3A.39 39 weeks gestation of pregnancy; Z29.13 Encounter for prophylactic Rho(D) immune globulin; O43.109 Malformation of placenta, unspecified, unspecified trimester; Z87.11 Personal history of peptic ulcer disease
CPT/HCPCS: 36415; 36430; 59409; 80305-QW; 84112; 85014; 85018; 85025; 85460; 86850; 86900; 86901; 99211; A9270-GY; J2210; J2590; J2790; J2795; J7030; J7120

== ENCOUNTER 2020-11-23 20:45 | Inpatient (IN) | payer MEDICAID ==
[2020-11-23] MEDS ORDERED: Carboprost Tromethamine 250 MCG/1 ML Amp IM ONE (21:07)
[2020-11-23] MEDS ORDERED: Methylergonovine 0.2 MG/1 ML Amp IM ONE (21:07)
[2020-11-23] MEDS ORDERED: Ondansetron 4 MG/2 ML SDV IV PRN (21:07)
[2020-11-23] MEDS ORDERED: Sodium Chloride 0.9% 10 ML Syringe FLUSH PRN (21:07)
[2020-11-23] MEDS ORDERED: Calcium Carbonate 500 MG Tab.Chew PO PRN (21:07)
[2020-11-23] MEDS ORDERED: Misoprostol 200 MCG Tab RECTAL ONE (21:07)
[2020-11-23] MEDS ORDERED: Lactated Ringers 1,000 ML IV SCH ×2 (21:15→22:15)
--- NOTE | 2020-11-23 21:18 | PCM.LDHP ---
L&D History of Present Illness - General Date of Service: 11/23/20 Admit Problem/Dx: Patient Status Order with Admit Dx/Problem 11/23/20 21:07 Patient Status [ADT] Routine Admission Diagnosis/Problem Admission Diagnosis/Problem Labor established Source of Information: Patient History Limitations: Reports: No Limitations - History of Present Illness Introduction:: 11/23/20 Karina is here at 37 6/7 weeks in early active labor. She has been symone on and off all week. Today contractions have been 8 minutes apart all day until about 1999 when they started becoming very strong and every 1-2 minutes. Membranes intact. She has had an uncomplicated other than excessive weight gain. A negative blood type. GBS negative, HIV/hep B/C/RPR all NR, rubella immune. Rhogam given at 28 weeks. She did have a hemorrhage last delivery. Timing/Duration: Reports: minutes: (1-3) Location, : Reports: Pelvic, Uterus Quality: Reports: Pressure Severity: Moderate Improves with: Reports: Rest Worsens with: Reports: None, Movement Associated Symptoms: Denies: vaginal bleeding, vaginal fluid - Related Data Allergies/Adverse Reactions: Allergies Allergy/AdvReac Type Severity Reaction Status Date / Time nickel Allergy Severe Rash Verified 09/13/15 00:46 Home Medications: Home Meds Pnv No.121/Iron/Folic Acid [ Multivitamin Tablet] 1 each PO DAILY 08/09/18 [History] ondansetron HCL [Zofran] 4 mg PO Q8HR PRN 08/09/18 [History] Past Medical History - Past Health History Medical/Surgical History: Denies Medical/Surgical History HEENT History: Reports: Impaired Vision Other HEENT History: wears glasses Gastrointestinal History: Reports: PUD Other Gastrointestinal History: stomach ulcer X3 Genitourinary History: Reports: None 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 Para: 1 LMP (Approximate): Other OB/BYN History: 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 Musculoskeletal History: Reports: None - Infectious Disease History Infectious Disease History: Reports: Chicken Pox - Past Surgical History Musculoskeletal Surgical History: Reports: Ganglion Cyst, Other (See Below) Social & Family History - Family History Family Medical History: No Pertinent Family History - Caffeine Use Caffeine Use: Reports: Coffee Other Caffeine Use: not very frequently H&P Review of Systems - Review of Systems: Review Of Systems: See Below General: Reports: No Symptoms HEENT: Reports: No Symptoms Pulmonary: Reports: No Symptoms Cardiovascular: Reports: No Symptoms Gastrointestinal: Reports: No Symptoms Genitourinary: Reports: No Symptoms Musculoskeletal: Reports: No Symptoms Skin: Reports: No Symptoms Psychiatric: Reports: No Symptoms Neurological: Reports: No Symptoms Hematologic/Lymphatic: Reports: No Symptoms Immunologic: Reports: No Symptoms L&D Exam - Exam Exam: See Below - OB Specific Contraction Intensity: Strong Movement: Active Heart Tones: Present Heart Rate (FHR) Variability: Moderate (6-25 bmp) Presentation: Vertex Estimated Weight: 8 lb - Exam General: Alert, Oriented HEENT: PERRLA, Conjunctiva Clear, Hearing Intact, Mucosa Moist & [place], Nares Patent, Pupils Equal, Pupils Reactive Neck: Supple, Trachea Midline Lungs: Clear to Auscultation, Normal Respiratory Effort Cardiovascular: Regular Rate, Regular Rhythm GI/Abdominal Exam: Normal Bowel Sounds, Soft, Non-Tender, Pelvis Stable Rectal Exam: Normal Exam Genitourinary: Normal external exam, Normal bimanual exam, Cervical dilitation. No: Cervical fluid, Vaginal bleeding Back Exam: Normal Inspection, Full Range of Motion Extremities: Normal Inspection, Normal Range of Motion, Non-Tender, No Pedal Edema, Normal Capillary Refill Skin: Warm, Dry, Intact Neurological: Cranial Nerves Intact, Reflexes Equal Bilateral Psychiatric: Alert, Normal Affect, Normal Mood - Problem List (1) Term SNOMED Code(s): 53677705 ICD Code: Z34.90 - ENCNTR FOR SUPRVSN OF NORMAL , UNSP, UNSP TRIMESTER Status: Acute Current Visit: Yes (2) Labor established SNOMED Code(s): 77120685 ICD Code: [id number] - Status: Acute Current Visit: No Problem List Initiated/Reviewed/Updated: Yes Orders Last 24hrs: Active Orders 24 hr Category Date Time Status Patient Status [ADT] Routine ADT 11/23/20 21:07 Ordered Communication Order [RC] ASDIRECTED Care 11/23/20 21:07 Ordered Heart Tones [RC] PER UNIT ROUTINE Care 11/23/20 21:07 Ordered Notify Provider Vital Signs [RC] PRN Care 11/23/20 21:09 Ordered Notify Provider [RC] PRN Care 11/23/20 21:07 Ordered Up ad Taylor [RC] ASDIRECTED Care 11/23/20 21:07 Ordered VTE/DVT Education [RC] Click to Edit Care 11/23/20 21:09 Ordered Vital Signs [RC] PER UNIT ROUTINE Care 11/23/20 21:07 Ordered Regular Diet [DIET] Diet 11/23/20 Dinner Ordered CBC W/O DIFF,HEMOGRAM [HEME] Routine Lab 11/23/20 21:07 Ordered DRUG SCREEN, URINE [URCHEM] Routine Lab 11/23/20 21:07 Ordered UA W/MICROSCOPIC [URIN] Routine Lab 11/23/20 21:07 Ordered Calcium Carbonate [Tums] Med 11/23/20 21:07 Ordered 1,000 mg PO Q2HR PRN Carboprost Tromethamine [Hemabate DS] Med 11/23/20 21:07 Once 250 mcg IM ONETIME ONE Lactated Ringers @ 125 MLS/HR(1000ml) Med 11/23/20 21:15 Ordered Lactated Ringers [Ringers, Lactated] 1,000 ml IV ASDIRECTED Methylergonovine [Methergine] Med 11/23/20 21:07 Once 0.2 mg IM ONETIME ONE Ondansetron [Zofran] Med 11/23/20 21:07 Ordered 4 mg IV Q4H PRN Sodium Chloride 0.9% [Saline Flush] Med 11/23/20 21:07 Ordered 10 ml FLUSH ASDIRECTED PRN miSOPROStoL [Cytotec] Med 11/23/20 21:07 Once 800 mcg RECTAL ONETIME ONE DVT/VTE Prophylaxis Reflex [OM.PC] Routine Oth 11/23/20 21:07 Ordered Saline Lock Insert [OM.PC] Routine Oth 11/23/20 21:07 Ordered Resuscitation Status Routine Resus Stat 11/23/20 21:07 Ordered Assessment/Plan Comment:: 11/23/20 30 yo here in spontaneous early labor Contractions every 1-3 min Category 1 tracing Uncomplicated GBS negative A negative blood type SVE 3.5/90/-1 Hx of PPH Plan: Patient would like an epidural, encouraged movement prior to getting an epidural Anticipate 2 IV's, will have PPH kit in room
[2020-11-24] MEDS ORDERED: Lactated Ringers 1,000 ML IV ONE (00:40)
[2020-11-24] MEDS ORDERED: Naloxone 0.4 MG/ML SDV IVPUSH PRN (00:42)
[2020-11-24] MEDS ORDERED: ePHEDrine 50 MG/ML SDV IVPUSH PRN (00:42)
[2020-11-24] MEDS ORDERED: Sodium Chloride 0.9% 10 ML Syringe FLUSH PRN (00:42)
[2020-11-24] MEDS ORDERED: diphenhydrAMINE 50 MG/ML SDV IVPUSH PRN ×2 (00:42)
[2020-11-24] MEDS ORDERED: Ropivacaine 100 ML ONE (01:13)
--- NOTE | 2020-11-24 01:35 | PCM.PNLD ---
Labor Progress Note - VS & Meds Vital Signs: Last Vital Signs Temp 36.4 C 11/23/20 21:30 Pulse 72 11/23/20 21:30 Resp 16 11/23/20 21:30 BP 116/68 11/23/20 21:30 Pulse Ox 98 11/23/20 21:30 Active Medications: Current Medications Calcium Carbonate/Glycine (Tums) 1,000 mg PO Q2H PRN PRN Reason: Indigestion Diphenhydramine HCl (Benadryl) 25 mg IVPUSH Q6H PRN PRN Reason: Itching Diphenhydramine HCl (Benadryl) 50 mg IVPUSH Q6H PRN PRN Reason: Itching Ephedrine Sulfate (Ephedrine Sulfate) 10 mg IVPUSH ASDIRECTED PRN PRN Reason: Hypotension Lactated Ringer's (Ringers, Lactated) 1,000 mls @ 125 mls/hr IV ASDIRECTED [facility] Last Admin: 11/23/20 22:05 Dose: 125 mls/hr Documented by: Lactated Ringer's (Ringers, Lactated) 1,000 mls @ 999 mls/hr IV ONETIME ONE Stop: 11/24/20 01:40 Last Admin: 11/24/20 00:40 Dose: 999 mls/hr Documented by: Oxytocin/Sodium Chloride (Pitocin In Ns 20 Units/1,000 Ml) 20 unit in 1,000 mls @ 6 mls/hr IV TITRATE HANNAH; Protocol Naloxone HCl (Narcan) 0.1 mg IVPUSH ASDIRECTED PRN PRN Reason: Oversedation Ondansetron HCl (Zofran) 4 mg IV Q4H PRN PRN Reason: Nausea/Vomiting Sodium Chloride (Saline Flush) 10 ml FLUSH ASDIRECTED PRN PRN Reason: Keep Vein Open Discontinued Medications Carboprost Tromethamine (Hemabate Ds) 250 mcg IM ONETIME ONE Stop: 11/23/20 21:08 Lactated Ringer's (Ringers, Lactated) 1,000 mls @ 125 mls/hr IV ASDIRECTED [facility] Last Admin: 11/23/20 21:05 Dose: 999 mls/hr Documented by: Ropivacaine (Naropin 0.2%) Confirm Administered Dose 100 mls @ as directed .ROUTE .STK-MED ONE Stop: 11/24/20 01:14 Methylergonovine Maleate (Methergine) 0.2 mg IM ONETIME ONE Stop: 11/23/20 21:08 Misoprostol (Cytotec) 800 mcg RECTAL ONETIME ONE Stop: 11/23/20 21:08 Sodium Chloride (Saline Flush) 10 ml FLUSH ASDIRECTED PRN PRN Reason: Keep Vein Open - Uterine Contractions Uterine Monitoring Mode: External [place] Contraction Frequency (min): 1.5-3 Contraction Duration (sec): 2-3 Contraction Intensity: Mild to Moderate Uterine Resting Tone: Soft - Monitoring Heart Rate (FHR) Baseline: 140 Heart Rate (FHR) Variability: Moderate (6-25 bmp) Accelerations: Present, 15x15 Decelerations: None Strip Review: Category I - Vaginal Exam Dilation (cm): 5 Effacement (Percent): 90 Station: -1 Cervical Position: Midposition Sterile Vaginal Exam Performed By: Chaya Dudley - Labor Progress (Free Text) Labor Progress: 11/24/20 Patient has continued to contract nicely. She had SROM of a large amount of clear fluid at 0030. She requested an epidural shortly after. SVE after epidural /-1. Category 1 tracing. Continue to monitor. Anticipate .
--- NOTE | 2020-11-24 02:34 | ANES ---
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 I was at the bedside at approximately 0050 hours. A brief history and physical was done with the patient. The patient has had a normal . No complications. Not currently on any blood thinners. She is only allergic to nickel. Platelet count was noted to be 246. Risks and benefits were reviewed with the patient. The patient verbalizes her understanding and wishes to proceed with the labor epidural at this time. DESCRIPTION OF PROCEDURE: The patient was sat at the edge of the bed. Betadine prep x3 to the lumbar region was done. Sterile drape was placed. 1% lidocaine skin wheal and deep was done. A 17-gauge Tuohy needle was inserted at approximately the L4-L5 position. Loss of resistance was easily achieved. Negative paresthesia, negative heme, negative CSF were noted. Catheter was then easily threaded through the Touhy needle. Tuohy needle was taken back and catheter was pulled back and secured at approximately 14 cm. Loss of resistance on the Touhy needle was done at approximately 5.5 cm. After the catheter was secured and 5 mL test dose was done, the patient was then laid in supine position with left uterine displacement and head of bed slightly elevated to about 30 degrees. After several minutes, the patient showed no signs of intravascular injection of local anesthetic or subarachnoid injection of the local. I then proceeded to give the patient 12 mL of 0.2% ropivacaine via the epidural and started her on a 0.2% ropivacaine drip at 12 mL an hour. The patient tolerated the overall procedure without difficulty. Please refer to the nurse's notes for vital signs. The patient is comfortable and will be available as needed for any problems that may arise regarding labor epidural. Josemanuel García CRNA /[id number]
[2020-11-24] MEDS ORDERED: Misoprostol 200 MCG Tab ONE (03:40)
[2020-11-24] MEDS ORDERED: Carboprost Tromethamine 250 MCG/1 ML Amp ONE (03:41)
[2020-11-24] MEDS ORDERED: Methylergonovine 0.2 MG/1 ML Amp ONE (03:41)
[2020-11-24] MEDS ORDERED: Benzocaine 20% Top Spray 56 GM Bottle TOP PRN (04:13)
[2020-11-24] MEDS ORDERED: Lanolin 100% Cream 40 GM Tube TOP PRN (04:13)
[2020-11-24] MEDS ORDERED: Ropivacaine 200 MG in Premix Bag 1 BAG EPIDUR SCH (04:15)
[2020-11-24] MEDS ORDERED: Ibuprofen 200 MG Tab, 24 Tab Bulk Bottle PO PRN (04:17)
[2020-11-24] MEDS ORDERED: Acetaminophen 325 MG Tab, 50 Tab Bulk Bottle PO PRN (04:17)
--- NOTE | 2020-11-24 04:30 | PCM.DEL ---
L & D Note - General Info Date of Service: 11/24/20 Mother's Due Date: 12/08/20 - Delivery Note Labor: Spontaneous Delivery Outcome: Livebirth Infant Delivery Method: Spontaneous Vaginal Delivery-Single Infant Delivery Mode: Spontaneous Presentation: Right Occiput Anterior (ANAIS) Nuchal Cord: None Anesthesia Type: Epidural Amniotic Fluid Description: Clear Episiotomy Type: None Laceration: None Placenta: Intact, Spontaneous Cord: 3 Vessels Estimated Blood Loss: 350 Resuscitation Needed: No [place]: Stimulated Provider: Chaya Dudley Score 1 min: 9 Score 5 min: 9 Second Stage Interventions: Reports: Second Nurse Assessed Progress of Descent, Second Nurse Reviewed Contraction Pattern, Second Nurse Reviewed Heart Tones, Pushing Effectively, Pushing, Pulls Own Legs Back Delivery Comments (Free Text/Narrative):: 11/24/20 30 yo G2 now P2 came into labor and delivery last night in spontaneous early labor. She had SROM at 0030 of clear fluid. She received an epidural and progressed nicely to complete. Category 1 tracing through out labor. She pushed for roughly 20 minutes and had a baby girl in ANAIS position. There was no nuchal cord. She was placed on mothers chest and dried, apgars 9, 9. Delayed cord clamping done for >1 minute. Placenta delivered spontaneously intact with a 3 vessel cord, Leblanc presentation. 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 She was firm for me with IV pitocin but had a constant trickle of blood so 800 mcg cytotec was placed rectally. There were no vaginal, cervical, or perineal lacerations. EBL: 350 mL. BP low after cytotec and delivery but patient asymptomatic. Stages of labor: 1: [id number] 2: 3650-6742 3: 0784-3717 - General Info Date of Service: 11/24/20 Functional Status: Reports: Pain Controlled - Review of Systems General: Reports: No Symptoms HEENT: Reports: No Symptoms Pulmonary: Reports: No Symptoms Cardiovascular: Reports: No Symptoms Gastrointestinal: Reports: No Symptoms Genitourinary: Reports: No Symptoms Musculoskeletal: Reports: No Symptoms Skin: Reports: No Symptoms Neurological: Reports: No Symptoms Psychiatric: Reports: No Symptoms - Patient Data Vitals - Most Recent: Last Vital Signs Temp 35.3 C L 11/24/20 02:41 Pulse 70 02/18/21 03:00 Resp 18 11/24/20 03:05 BP 102/58 L 11/24/20 03:05 Pulse Ox 99 11/24/20 03:00 Weight - Most Recent: 101.605 kg Lab Results Last 24 Hours: Laboratory Results - last 24 hr 11/23/20 11/23/20 11/23/20 Range/Units 21:07 21:07 21:23 WBC 9.7 (4.5-11.0) K/uL RBC 3.70 (3.30-5.50) M/uL Hgb 11.4 L D (12.0-15.0) g/dL Hct 35.2 L (36.0-48.0) % MCV 95 (80-98) fL MCH 31 (27-31) pg MCHC 32 (32-36) % Plt Count 246 (150-400) K/uL Urine Color Yellow (YELLOW) Urine Appearance Cloudy A (CLEAR) Urine pH 6.0 (5.0-8.0) Ur Specific [place]inson >= 1.030 (1.008-1.030) Urine Protein Negative (NEGATIVE) mg/dL Urine Glucose (UA) Negative (NEGATIVE) mg/dL Urine Ketones Negative (NEGATIVE) mg/dL Urine Occult Blood Trace-intact H (NEGATIVE) Urine Nitrite Negative (NEGATIVE) Urine Bilirubin Negative (NEGATIVE) Urine Urobilinogen 0.2 (0.2-1.0) EU/dL Ur Leukocyte Esterase Trace H (NEGATIVE) Urine RBC 0-5 (0-5) Urine WBC 0-5 (0-5) Ur Epithelial Cells Many Amorphous Sediment Moderate Urine Bacteria Moderate Urine Mucus Few Urine Opiates Screen Negative (NEGATIVE) Ur Oxycodone Screen Negative (NEGATIVE) Urine Methadone Screen Negative (NEGATIVE) Ur Propoxyphene Screen Negative (NEGATIVE) Ur Barbiturates Screen Negative (NEGATIVE) Ur Tricyclics Screen Negative (NEGATIVE) Ur Phencyclidine Scrn Negative (NEGATIVE) Ur Amphetamine Screen Negative (NEGATIVE) U Methamphetamines Scrn Negative (NEGATIVE) Urine MDMA Screen Negative (NEGATIVE) U Benzodiazepines Scrn Negative (NEGATIVE) U Cocaine Metab Screen Negative (NEGATIVE) U Marijuana (THC) Screen Negative (NEGATIVE) Med Orders - Current: Current Medications Acetaminophen (Tylenol Bulk Bottle) 0 mg PO Q4H PRN PRN Reason: Pain Benzocaine (Oekn-T-Pazdmss 20% Wood) 0 gm TOP Q4H PRN PRN Reason: Perineal Comfort Measure Calcium Carbonate/Glycine (Tums) 1,000 mg PO Q2H PRN PRN Reason: Indigestion Last Admin: 11/24/20 02:38 Dose: 1,000 mg Documented by: Diphenhydramine HCl (Benadryl) 25 mg IVPUSH Q6H PRN PRN Reason: Itching Diphenhydramine HCl (Benadryl) 50 mg IVPUSH Q6H PRN PRN Reason: Itching Emollient Ointment (Lansinoh Hpa) 1 gm TOP ASDIRECTED PRN PRN Reason: Sore Nipples Ephedrine Sulfate (Ephedrine Sulfate) 10 mg IVPUSH ASDIRECTED PRN PRN Reason: Hypotension Lactated Ringer's (Ringers, Lactated) 1,000 mls @ 125 mls/hr IV ASDIRECTED [facility] Last Admin: 11/23/20 22:05 Dose: 125 mls/hr Documented by: Oxytocin/Sodium Chloride (Pitocin In Ns 20 Units/1,000 Ml) 20 unit in 1,000 mls @ 6 mls/hr IV TITRATE [facility]; Protocol Ropivacaine 200 mg/ Premix 100 mls @ 12 mls/hr EPIDUR ASDIRECTED [facility] Ibuprofen (Motrin Bulk Bottle) 600 mg PO Q6H PRN PRN Reason: Pain Naloxone HCl (Narcan) 0.1 mg IVPUSH ASDIRECTED PRN PRN Reason: Oversedation Ondansetron HCl (Zofran) 4 mg IV Q4H PRN PRN Reason: Nausea/Vomiting Sodium Chloride (Saline Flush) 10 ml FLUSH ASDIRECTED PRN PRN Reason: Keep Vein Open Discontinued Medications Carboprost Tromethamine (Hemabate Ds) 250 mcg IM ONETIME ONE Stop: 11/23/20 21:08 Carboprost Tromethamine (Hemabate Ds) Confirm Administered Dose 250 mcg .ROUTE .STK-MED ONE Stop: 11/24/20 03:42 Lactated Ringer's (Ringers, Lactated) 1,000 mls @ 125 mls/hr IV ASDIRECTED [facility] Last Admin: 11/23/20 21:05 Dose: 999 mls/hr Documented by: Lactated Ringer's (Ringers, Lactated) 1,000 mls @ 999 mls/hr IV ONETIME ONE Stop: 11/24/20 01:40 Last Admin: 11/24/20 00:40 Dose: 999 mls/hr Documented by: Ropivacaine (Naropin 0.2%) Confirm Administered Dose 100 mls @ as directed .ROUTE .STK-MED ONE Stop: 11/24/20 01:14 Methylergonovine Maleate (Methergine) 0.2 mg IM ONETIME ONE Stop: 11/23/20 21:08 Methylergonovine Maleate (Methergine) Confirm Administered Dose 0.2 mg .ROUTE .STK-MED ONE Stop: 11/24/20 03:42 Misoprostol (Cytotec) 800 mcg RECTAL ONETIME ONE Stop: 11/23/20 21:08 Last Admin: 11/24/20 04:06 Dose: Not Given Documented by: Misoprostol (Cytotec) Confirm Administered Dose 800 mcg .ROUTE .STK-MED ONE Stop: 11/24/20 03:41 Last Admin: 11/24/20 04:04 Dose: 800 mcg Documented by: Sodium Chloride (Saline Flush) 10 ml FLUSH ASDIRECTED PRN PRN Reason: Keep Vein Open - Exam General: Alert, Oriented HEENT: Pupils Equal, Pupils Reactive, Mucous Membr. Moist/[place] Neck: Supple Lungs: Clear to Auscultation, Normal Respiratory Effort Cardiovascular: Regular Rate, Regular Rhythm GI/Abdominal Exam: Normal Bowel Sounds, Soft, Non-Tender, No Mass, Pelvis Stable (Female) Exam: Normal External Exam, Normal Bimanual Exam, Cervical Dilatation, Enlarged Uterus, Vaginal Bleeding Back Exam: Normal Inspection, Full Range of Motion Extremities: Normal Inspection, Normal Range of Motion, Non-Tender, No Pedal Edema, Normal Capillary Refill Skin: Warm, Dry, Intact Neurological: No New Focal Deficit Psy/Mental Status: Alert, Normal Affect, Normal Mood - Problem List & Annotations (1) Term SNOMED Code(s): 94413258 Code(s): Z34.90 - ENCNTR FOR SUPRVSN OF NORMAL , UNSP, UNSP TRIMESTER Status: Acute Current Visit: Yes (2) Labor established SNOMED Code(s): 45597209 Code(s): YVJ1178 - Status: Acute Current Visit: No (3) Normal vaginal delivery SNOMED Code(s): 83348947, 508196345 Code(s): O80 - ENCOUNTER FOR FULL-TERM UNCOMPLICATED DELIVERY Status: Acute Current Visit: Yes (4) started SNOMED Code(s): 425129401 Code(s): DBU6295 - Status: Acute Current Visit: Yes - Problem List Review Problem List Initiated/Reviewed/Updated: Yes - My Orders Last 24 Hours: My Active Orders 11/23/20 Dinner Regular Diet [DIET] 11/23/20 21:07 Patient Status [ADT] Routine Communication Order [RC] ASDIRECTED Heart Tones [RC] PER UNIT ROUTINE Notify Provider [RC] PRN Up ad Taylor [RC] ASDIRECTED Vital Signs [RC] PER UNIT ROUTINE Calcium Carbonate [Tums] 1,000 mg PO Q2H PRN Ondansetron [Zofran] 4 mg IV Q4H PRN DVT/VTE Prophylaxis Reflex [OM.PC] Routine Saline Lock Insert [OM.PC] Routine Resuscitation Status Routine 11/23/20 21:09 Notify Provider Vital Signs [RC] PRN VTE/DVT Education [RC] Click to Edit 11/23/20 22:15 Lactated Ringers [Ringers, Lactated] 1,000 ml IV ASDIRECTED 11/24/20 01:30 Oxytocin/Normal Saline [Pitocin in NS 20 Units/1,000 ML] 20 unit in 1,000 ml IV TITRATE 11/24/20 04:13 Consult to Supervisor Mending [CONS] Routine RHIG WORKUP, [BBK] Routine Benzocaine [Pdki-V-Vxjybyy 20% Wood] See Dose Instructions TOP Q4H PRN Lanolin [Lansinoh HPA] 1 gm TOP ASDIRECTED PRN Assess Lochia [WOMSER] Per Unit Routine Assess Uterine Involution [WOMSER] Per Unit Routine 11/24/20 04:14 Patient Status [ADT] Routine Vital Signs [RC] PFP 11/24/20 04:15 Ice Therapy [OM.PC] Per Unit Routine Perineal Care [OM.PC] Per Unit Routine Sitz Bath [OM.PC] Per Unit Routine 11/24/20 04:17 Acetaminophen [Tylenol Bulk Bottle] See Dose Instructions PO Q4H PRN Ibuprofen [Motrin Bulk Bottle] 600 mg PO Q6H PRN 11/25/20 04:00 CBC WITH AUTO DIFF [HEME] Timed - Assessment Assessment:: 11/24/20 30 yo with at 0355 of female at 38 0/7 Steady trickle of blood after placenta despite firm uterus and IV pitocin, low threshold for medications due to history of PPH so cytotec was placed rectally Perineum intact started - Plan Plan:: 11/23/20 30 yo here in spontaneous early labor Contractions every 1-3 min Category 1 tracing Uncomplicated GBS negative A negative blood type SVE 3.5/-1 Hx of PPH Plan: Patient would like an epidural, encouraged movement prior to getting an epidural Anticipate 2 IV's, will have PPH kit in room 11/24/20 Routine cares support Monitor for bleeding closely Hemogram tomorrow am, sooner if needed Anticipate discharge home 24-48 hours
--- NOTE | 2020-11-25 08:24 | PCM.PNPP ---
- General Info Date of Service: 11/25/20 Admission Dx/Problem (Free Text): Patient Status Order with Admit Dx/Problem 11/23/20 21:07 Patient Status [ADT] Routine Admission Diagnosis/Problem Admission Diagnosis/Problem Labor established Functional Status: Reports: Pain Controlled - Review of Systems General: Reports: No Symptoms HEENT: Reports: No Symptoms Pulmonary: Reports: No Symptoms Cardiovascular: Reports: No Symptoms Gastrointestinal: Reports: No Symptoms Genitourinary: Reports: No Symptoms Musculoskeletal: Reports: No Symptoms Skin: Reports: No Symptoms Neurological: Reports: No Symptoms Psychiatric: Reports: No Symptoms - Patient Data Vital Signs - Most Recent: Last Vital Signs Temp 95.5 F L 11/25/20 04:00 Pulse 77 11/25/20 04:00 Resp 18 11/25/20 04:00 BP 123/72 11/25/20 04:00 Pulse Ox 98 11/25/20 04:00 Weight - Most Recent: 224 lb I&O - Last 24 Hours: Intake & Output 11/24/20 11/25/20 11/25/20 22:59 06:59 14:59 Intake Total 1000 Balance 1000 Lab Results - Last 24 Hours: Laboratory Results - last 24 hr 11/24/20 11/25/20 Range/Units 08:25 04:53 WBC 9.5 (4.5-11.0) K/uL RBC 3.48 (3.30-5.50) M/uL Hgb 11.1 L (12.0-15.0) g/dL Hct 33.2 L (36.0-48.0) % MCV 95 (80-98) fL MCH 32 H (27-31) pg MCHC 33 (32-36) % Plt Count 227 (150-400) K/uL Neut % (Auto) 65 (36-66) % Lymph % (Auto) 26 (24-44) % [place] % (Auto) 8 H (2-6) % Eos % (Auto) 1 L (2-4) % Baso % (Auto) 0 (0-1) % Blood Type A NEGATIVE Gel Antibody Screen Negative Screen Negative Rhogam Indicated Yes, baby rh pos Med Orders - Current: Current Medications Acetaminophen (Tylenol Bulk Bottle) 0 mg PO Q4H PRN PRN Reason: Pain Last Admin: 11/24/20 05:08 Dose: 500 mg Documented by: Benzocaine (Qewc-B-Eeaplan 20% Jones) 0 gm TOP Q4H PRN PRN Reason: Perineal Comfort Measure Last Admin: 11/24/20 05:07 Dose: 1 spr Documented by: Calcium Carbonate/Glycine (Tums) 1,000 mg PO Q2H PRN PRN Reason: Indigestion Last Admin: 11/24/20 02:38 Dose: 1,000 mg Documented by: Diphenhydramine HCl (Benadryl) 25 mg IVPUSH Q6H PRN PRN Reason: Itching Diphenhydramine HCl (Benadryl) 50 mg IVPUSH Q6H PRN PRN Reason: Itching Emollient Ointment (Lansinoh Hpa) 1 gm TOP ASDIRECTED PRN PRN Reason: Sore Nipples Last Admin: 11/24/20 05:07 Dose: 1 gm Documented by: Ephedrine Sulfate (Ephedrine Sulfate) 10 mg IVPUSH ASDIRECTED PRN PRN Reason: Hypotension Ibuprofen (Motrin Bulk Bottle) 600 mg PO Q6H PRN PRN Reason: Pain Last Admin: 11/24/20 05:08 Dose: 600 mg Documented by: Naloxone HCl (Narcan) 0.1 mg IVPUSH ASDIRECTED PRN PRN Reason: Oversedation Ondansetron HCl (Zofran) 4 mg IV Q4H PRN PRN Reason: Nausea/Vomiting Sodium Chloride (Saline Flush) 10 ml FLUSH ASDIRECTED PRN PRN Reason: Keep Vein Open Discontinued Medications Carboprost Tromethamine (Hemabate Ds) 250 mcg IM ONETIME ONE Stop: 11/23/20 21:08 Last Admin: 11/24/20 05:23 Dose: Not Given Documented by: Carboprost Tromethamine (Hemabate Ds) Confirm Administered Dose 250 mcg .ROUTE .STK-MED ONE Stop: 11/24/20 03:42 Last Admin: 11/24/20 05:23 Dose: Not Given Documented by: Lactated Ringer's (Ringers, Lactated) 1,000 mls @ 125 mls/hr IV ASDIRECTED [facility] Last Admin: 11/23/20 21:05 Dose: 999 mls/hr Documented by: Lactated Ringer's (Ringers, Lactated) 1,000 mls @ 125 mls/hr IV ASDIRECTED [facility] Last Admin: 11/23/20 22:05 Dose: 125 mls/hr Documented by: Lactated Ringer's (Ringers, Lactated) 1,000 mls @ 999 mls/hr IV ONETIME ONE Stop: 11/24/20 01:40 Last Admin: 11/24/20 00:40 Dose: 999 mls/hr Documented by: Ropivacaine (Naropin 0.2%) Confirm Administered Dose 100 mls @ as directed .ROUTE .STK-MED ONE Stop: 11/24/20 01:14 Oxytocin/Sodium Chloride (Pitocin In Ns 20 Units/1,000 Ml) 20 unit in 1,000 mls @ 6 mls/hr IV TITRATE [facility]; Protocol Last Titration: 11/24/20 04:28 Dose: 41.67 munits/min, 125 mls/hr Documented by: Ropivacaine 200 mg/ Premix 100 mls @ 12 mls/hr EPIDUR ASDIRECTED [facility] Last Admin: 11/24/20 00:52 Dose: 12 mls/hr Documented by: Methylergonovine Maleate (Methergine) 0.2 mg IM ONETIME ONE Stop: 11/23/20 21:08 Last Admin: 11/24/20 05:23 Dose: Not Given Documented by: Methylergonovine Maleate (Methergine) Confirm Administered Dose 0.2 mg .ROUTE .STK-MED ONE Stop: 11/24/20 03:42 Last Admin: 11/24/20 05:23 Dose: Not Given Documented by: Misoprostol (Cytotec) 800 mcg RECTAL ONETIME ONE Stop: 11/23/20 21:08 Last Admin: 11/24/20 04:06 Dose: Not Given Documented by: Misoprostol (Cytotec) Confirm Administered Dose 800 mcg .ROUTE .STK-MED ONE Stop: 11/24/20 03:41 Last Admin: 11/24/20 04:04 Dose: 800 mcg Documented by: Sodium Chloride (Saline Flush) 10 ml FLUSH ASDIRECTED PRN PRN Reason: Keep Vein Open - Infant Interaction Disposition, : in Room with Family Infant Interaction: Holding Infant Feeding: Breastfed Infant; Nursed Well Support Person: - Recovery Exam Fundal Tone: Firm Fundal Level: 1 Fingerbreadths Below Umbilicus Fundal Placement: Midline Lochia Amount: Small Lochia Color: Rubra/Red Perineum Description: Intact, Minimal Bruising/Swelling Episiotomy/Laceration: None Bladder Status: Voiding Urinary Elimination: Voided - Exam General: Alert, Oriented HEENT: Pupils Equal, Pupils Reactive Neck: Supple Lungs: Clear to Auscultation, Normal Respiratory Effort Cardiovascular: Regular Rate, Regular Rhythm GI/Abdominal Exam: Soft, Pelvis Stable Extremities: No Pedal Edema, Normal Capillary Refill Skin: Warm, Dry Wound/Incisions: Healing Well Neurological: No New Focal Deficit Psy/Mental Status: Alert, Normal Affect, Normal Mood - Problem List & Annotations (1) Mother currently breast-feeding SNOMED Code(s): 615640395 Code(s): ICZ1576 - Status: Acute Current Visit: No (2) Normal vaginal delivery SNOMED Code(s): 42333313, 947206134 Code(s): O80 - ENCOUNTER FOR FULL-TERM UNCOMPLICATED DELIVERY Status: Acute Current Visit: Yes (3) Need for rhogam due to Rh negative mother SNOMED Code(s): 270046764, 741318025 Code(s): Z29.13 - ENCOUNTER FOR PROPHYLACTIC RHO(D) IMMUNE GLOBULIN Status: Acute Current Visit: No - Problem List Review Problem List Initiated/Reviewed/Updated: Yes - Assessment Assessment:: 11/24/20 30 yo with at 0355 of female at 38 0/7 Steady trickle of blood after placenta despite firm uterus and IV pitocin, low threshold for medications due to history of PPH so cytotec was placed rectally Perineum intact started 11/25/20 Feeling well without problems Fundus firm and flow is light voiding without problem mood happy wants to go home Had Rhogam yesterday - Plan Plan:: 11/23/20 30 yo here in spontaneous early labor Contractions every 1-3 min Category 1 tracing Uncomplicated GBS negative A negative blood type SVE 3.5/90/-1 Hx of PPH Plan: Patient would like an epidural, encouraged movement prior to getting an epidural Anticipate 2 IV's, will have PPH kit in room 11/24/20 Routine cares support Monitor for bleeding closely Hemogram tomorrow am, sooner if needed Anticipate discharge home 24-48 hours 11/25/20 Home today See me in 6 weeks for a post visit
[2020-11-25 09:26] VITALS: BP 122/62; PULSE 80
== END 2020-11-25 11:15 | disposition home or self-care (01) | DRG 807 ==
LOC: JP.OBCHECK 20:45 → JP.OB 21:06 → OBSVTOIN 11-24 03:55 → JP.MS 11-24 09:10
PROVIDERS: ADMIT Advanced Practice Midwife; ATTEND Advanced Practice Midwife
PROC: 10E0XZZ Delivery of Products of Conception, External Approach (ICD-10-PCS; principal; 2020-11-24)
PROC: 3E0P7VZ Introduction of Hormone into Female Reproductive, Via Natural or Artificial Opening (ICD-10-PCS; 2020-11-24)
PROC: 3E0R3BZ Introduction of Anesthetic Agent into Spinal Canal, Percutaneous Approach (ICD-10-PCS; 2020-11-24)
PROC: 00HU33Z Insertion of Infusion Device into Spinal Canal, Percutaneous Approach (ICD-10-PCS; 2020-11-24)
PROC: 3E0334Z Introduction of Serum, Toxoid and Vaccine into Peripheral Vein, Percutaneous Approach (ICD-10-PCS; 2020-11-24)
DX: O26.893 Other specified pregnancy related conditions, third trimester (principal); Z37.0 Single live birth; Z3A.37 37 weeks gestation of pregnancy; Z29.13 Encounter for prophylactic Rho(D) immune globulin; Z67.11 Type A blood, Rh negative
CPT/HCPCS: 36415; 36430; 51702; 59409; 80305-QW; 81001; 85025; 85027; 85460; 86850; 86900; 86901; 99211; A9270-GY; J2590; J2790; J2795; J7120

== ENCOUNTER 2020-11-30 23:04 | Emergency (ER) | payer MEDICAID ==
--- NOTE | 2020-11-30 23:23 | EDM.PDOC ---
ED HPI GENERAL MEDICAL PROBLEM - General Chief Complaint: RESOLUTE PROFESSIONAL Problem Stated Complaint: HEAVY BLEEDING Time Seen by Provider: 11/30/20 23:14 Source of Information: Reports: Patient, Old Records History Limitations: Reports: No Limitations - History of Present Illness INITIAL COMMENTS - FREE TEXT/NARRATIVE: Debora is a 30-year-old female presenting to the ED for menorrhagia. The patient gave to a full-term child 7 days ago. She had ongoing issues with bleeding and underwent an ultrasound earlier today showing retained products of conception. Ultimately she was transferred to [place] where she underwent D&C today. After the D&C she reportedly had diminished bleeding but was told to watch for any heavy bleeding recurring. She states but before she even made it home she started bleeding heavily and has gone through the 3 supersized pads since being discharged from [place] at 2000 hrs. Lower Abdominal Pain Score (Numeric/FACES): 4 - Related Data Allergies Allergy/AdvReac Type Severity Reaction Status Date / Time nickel Allergy Severe Rash Verified 11/30/20 23:19 Home Meds: Home Meds Pnv No.121/Iron/Folic Acid [ Multivitamin Tablet] 1 each PO DAILY 08/09/18 [History] ondansetron HCL [Zofran] 4 mg PO Q8HR PRN 08/09/18 [History] hydrOXYzine HCL [Hydroxyzine HCl] 50 mg PO BEDTIME PRN 11/23/20 [History] Methylergonovine [Methergine] 0.2 mg PO Q6HR 2 Days #8 tablet 12/01/20 [Rx] Past Medical History - Past Health History Medical/Surgical History: Denies Medical/Surgical History HEENT History: Reports: Impaired Vision Other HEENT History: wears glasses Gastrointestinal History: Reports: PUD Other Gastrointestinal History: stomach ulcer X3 Genitourinary History: Reports: None RESOLUTE PROFESSIONAL History: Reports: Other RESOLUTE PROFESSIONAL History: 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 Musculoskeletal History: Reports: None - Infectious Disease History Infectious Disease History: Reports: Chicken Pox - Past Surgical History HEENT Surgical History: Reports: None GI Surgical History: Reports: EGD Female Surgical History: Reports: LEEP Musculoskeletal Surgical History: Reports: Ganglion Cyst, Other (See Below) Other Musculoskeletal Surgeries/Procedures:: ganglian cysts removed from wrists x 3 Dermatological Surgical History: Reports: None Social & Family History - Family History Family Medical History: No Pertinent Family History - Caffeine Use Caffeine Use: Reports: Coffee Other Caffeine Use: not very frequently ED ROS GENERAL - Review of Systems Review Of Systems: See Below Constitutional: Reports: Fatigue HEENT: Reports: No Symptoms Respiratory: Reports: No Symptoms Cardiovascular: Reports: No Symptoms Endocrine: Reports: No Symptoms GI/Abdominal: Reports: No Symptoms : Reports: Other (Heavy menstrual bleeding following a D&C today for retained products of conception. Patient is 1 week ) Musculoskeletal: Reports: No Symptoms Skin: Reports: Pallor Neurological: Reports: Dizziness Psychiatric: Reports: No Symptoms Hematologic/Lymphatic: Reports: No Symptoms Immunologic: Reports: No Symptoms ED EXAM, GENERAL - Physical Exam Exam: See Below Exam Limited By: No Limitations General Appearance: Alert, Anxious, Mild Distress Eye Exam: Bilateral Eye: EOMI, PERRL, Other (Minimal conjunctival blood vessel presence.) Head: Atraumatic, Normocephalic Neck: Normal Inspection Respiratory/Chest: No Respiratory Distress, Lungs Clear, Normal Breath Sounds Cardiovascular: Normal Peripheral Pulses, Regular Rate, Rhythm, No Murmur. No: Tachycardia Peripheral Pulses: 2+: Radial (L), Radial (R) GI/Abdominal: Normal Bowel Sounds (Female) Exam: Uterine Tenderness (Uterine tenderness by palpation of the lower abdomen. The fundus is approximately 5 cm above the pelvic rim.), Vaginal Bleeding Back Exam: Normal Inspection, Full Range of Motion Neurological: Alert, Oriented, Normal Cognition, No Motor/Sensory Deficits Psychiatric: Normal Affect, Normal Mood Skin Exam: Warm, Dry, Pallor Lymphatic: No Adenopathy Course - Vital Signs Last Recorded V/S: Last Vital Signs Temp 35.4 C L 11/30/20 23:16 Pulse 61 12/01/20 04:22 Resp 16 12/01/20 04:22 BP 123/82 12/01/20 04:22 Pulse Ox 95 12/01/20 04:22 - Orders/Labs/Meds Orders: Active Orders 24 hr Category Date Time Status Methylergonovine [Methergine] Med 12/01/20 00:06 Active 0.2 mg IM Q4H PRN Sodium Chloride 0.9% [Saline Flush] Med 12/01/20 00:07 Active 10 ml FLUSH ASDIRECTED PRN Saline Lock Insert [OM.PC] Routine Oth 12/01/20 00:07 Ordered Medication Orders Methylergonovine Maleate (Methergine) 0.2 mg IM Q4H PRN PRN Reason: Bleeding Last Admin: 12/01/20 04:57 Dose: 0.2 mg Documented by: Admin: 12/01/20 01:02 Dose: 0.2 mg Documented by: CHELSEY Sodium Chloride (Saline Flush) 10 ml FLUSH ASDIRECTED PRN PRN Reason: Keep Vein Open Last Admin: 12/01/20 00:50 Dose: 10 ml Documented by: CHELSEY Labs: Laboratory Tests 11/30/20 11/30/20 11/30/20 Range/Units 23:20 23:20 23:20 WBC 12.4 H (4.5-11.0) K/uL RBC 4.19 (3.30-5.50) M/uL Hgb 13.1 D (12.0-15.0) g/dL Hct 39.3 (36.0-48.0) % MCV 94 (80-98) fL MCH 31 (27-31) pg MCHC 33 (32-36) % Plt Count 310 (150-400) K/uL Neut % (Auto) 89 H (36-66) % Lymph % (Auto) 8 L (24-44) % [place] % (Auto) 3 (2-6) % Eos % (Auto) 0 L (2-4) % Baso % (Auto) 0 (0-1) % PT 10.1 (9.5-12.0) sec INR 0.93 (0.80-1.20) APTT 27.5 (27.0-36.0) sec Blood Type A NEGATIVE Gel Antibody Screen Positive A* Antibody Identification Cancelled 12/01/20 Range/Units 05:02 WBC 12.1 H (4.5-11.0) K/uL RBC 3.40 (3.30-5.50) M/uL Hgb 10.5 L D (12.0-15.0) g/dL Hct 32.2 L (36.0-48.0) % MCV 95 (80-98) fL MCH 31 (27-31) pg MCHC 33 (32-36) % Plt Count 242 (150-400) K/uL Neut % (Auto) (36-66) % Lymph % (Auto) (24-44) % [place] % (Auto) (2-6) % Eos % (Auto) (2-4) % Baso % (Auto) (0-1) % PT (9.5-12.0) sec INR (0.80-1.20) APTT (27.0-36.0) sec Blood Type Gel Antibody Screen Antibody Identification Meds: Medications Generic Name Dose Route Start Last Admin Trade Name Frelynsey PRN Reason Stop Dose Admin Methylergonovine Maleate 0.2 mg 12/01/20 00:06 12/01/20 04:57 Methergine IM 0.2 mg Q4H PRN Administration Bleeding Sodium Chloride 10 ml 12/01/20 00:07 12/01/20 00:50 Saline Flush FLUSH 10 ml ASDIRECTED PRN Administration Keep Vein Open Discontinued Medications Generic Name Dose Route Start Last Admin Trade Name Shivam PRN Reason Stop Dose Admin Acetaminophen 1,000 mg 12/01/20 01:40 Tylenol Extra Strength PO 12/01/20 01:41 ONETIME ONE Acetaminophen Confirm 12/01/20 01:41 12/01/20 01:52 Tylenol Extra Strength Administered 12/01/20 01:42 1,000 mg Dose Administration 1,000 mg .ROUTE .STK-MED ONE Hydromorphone HCl 0.5 mg 12/01/20 01:50 12/01/20 02:09 Dilaudid IVPUSH 12/01/20 01:51 0.5 mg ONETIME ONE Administration Hydromorphone HCl Confirm 12/01/20 02:01 Dilaudid Administered 12/01/20 02:02 Dose 0.5 mg .ROUTE .STK-MED ONE Sodium Chloride 1,000 mls @ 250 mls/hr 12/01/20 00:07 12/01/20 00:51 Normal Saline IV 12/01/20 04:06 250 mls/hr .BOLUS ONE Administration Ondansetron HCl 4 mg 12/01/20 01:50 12/01/20 02:09 Zofran IVPUSH 12/01/20 01:51 4 mg ONETIME ONE Administration - Re-Assessments/Exams Free Text/Narrative Re-Assessment/Exam: 12/01/2020 00:00 I discussed the case with Dr. Rosa from [facility] at [place]. They reveal that the patient reports that she is gone through 3 supersized pads soaking them in the 3 hours since leaving [place]. She is also going through a super pad over the 45 minutes that she has been in the ER. She has passing bright red blood per the vagina with minimal clots. She does have active cramping. She underwent a D&C earlier today which according to Dr. Rosa removed a large portion of the placenta that was retained for the last week. As the patient is vitally stable, he recommends that we keep her here for observation and check another hemoglobin in 4 to 6 hours. Her hemoglobin currently is at 13.1 which is higher than it was on 11/25/2020 when it was 11.3. It may be this elevated because she has not had time to [place] liberate. Clinically she looks quite anemic with pallor, cool skin, and diminished conjunctival vessels. She initially presented with a blood pressure of 147/58. Her heart rate was 116. An hour later her blood pressure is 104/69 with a heart rate of 102. I asked Dr. Rosa about recommendations for her care at this point. He recommended Methergine 0.2 mg IM every 4 hours as needed ble eding. This may help reduce her flow. He felt since the patient is clinically stable she did not warrant transfer back to [place]. 12/01/20 00:44 we have started an IV and are giving IV normal saline at 250 cc/h. We have also initiated Methergine 0.2 mg IM every 4 hours as needed bleeding. We will check a hemoglobin at 0500 hrs. We did discuss the use of pump and dump for breast-feeding while the patient is on Methergine and 12 hours after it is discontinued. 12/01/20 05:37 patient has had several rounds of Methergine and has had improvement in her bleeding. We will recheck of a hemoglobin now shows decline from 13.1 down to 10.5 over the last 5 hours. The patient has had 2 saturated heavy pads and has mild bleeding in the last pad which was changed about a half an hour ago. I again will discuss the case with Dr. Rosa concerning the follow-up but the patient will likely be able to go home. I discussed the case with Dr. Rosa and he would like her to receive another dose of Methergine 0.2 mg IM before going and then to start her on Methergine 0.2 mg every 6 hours for 2 days. He would like to see her in follow-up in the [facility] on Saturday. Indications to return to the ED were discussed with the patient. She is feeling much better now that the bleeding has slowed to a mild trickle. She has been vitally stable despite the drop in hemoglobin which is likely due to the hemoequilibration secondary to the rapid vaginal bleeding. All questions were answered prior to discharge. Departure - Departure Time of Disposition: 05:53 Disposition: Home, Self-Care 01 Clinical Impression: Secondary hemorrhage hemorrhage Qualifiers: hemorrhage type: third-stage Qualified Code(s): O72.0 - Third-stage hemorrhage - Discharge Information *PRESCRIPTION DRUG MONITORING PROGRAM REVIEWED*: Not Applicable *COPY OF PRESCRIPTION DRUG MONITORING REPORT IN PATIENT SIDDHARTHA: Not Applicable Instructions: Hemorrhage Referrals: Jennifer Mcleod CNM [Primary Care Provider] - Forms: ED Department Discharge Care Plan Goals: Return to the ED if you develop heavy bleeding again accompanied by rapid heartbeat or lightheadedness. I discussed the case with Dr. Rosa who recommends you take Methergine 0.2 mg every 6 hours for the next 2 days to help reduce the bleeding. He would like to see you at the [facility] on Saturday so a referral has been sent through to schedule this. You should be contacted to arrange this appointment. Avoid jumping jacks or extreme exercise at this time. Sepsis Event Note (ED) - Focused Exam Vital Signs: Vital Signs Temp Pulse Resp BP Pulse Ox 12/01/20 04:22 61 16 123/82 95 12/01/20 03:52 65 16 117/73 95 12/01/20 03:22 65 16 121/78 95 12/01/20 01:48 60 22 H 161/97 H 100 12/01/20 00:02 102 H 16 104/64 97 11/30/20 23:16 35.4 C L 116 H 16 146/75 H 97 - Problem List & Annotations (1) hemorrhage SNOMED Code(s): 82827288 Code(s): O72.1 - OTHER IMMEDIATE HEMORRHAGE Status: Acute Priority: High Current Visit: Yes Qualifiers: hemorrhage type: secondary hemorrhage Qualified Code(s): O72.2 - Delayed and secondary hemorrhage - Problem List Review Problem List Initiated/Reviewed/Updated: Yes - My Orders Last 24 Hours: My Active Orders 12/01/20 00:06 Methylergonovine [Methergine] 0.2 mg IM Q4H PRN 12/01/20 00:07 Sodium Chloride 0.9% [Saline Flush] 10 ml FLUSH ASDIRECTED PRN Saline Lock Insert [OM.PC] Routine - Assessment/Plan Last 24 Hours: My Active Orders 12/01/20 00:06 Methylergonovine [Methergine] 0.2 mg IM Q4H PRN 12/01/20 00:07 Sodium Chloride 0.9% [Saline Flush] 10 ml FLUSH ASDIRECTED PRN Saline Lock Insert [OM.PC] Routine
[2020-12-01] MEDS ORDERED: Sodium Chloride 0.9% 1,000 ML IV ONE (00:07)
[2020-12-01] MEDS ORDERED: Sodium Chloride 0.9% 10 ML Syringe FLUSH PRN (00:07)
[2020-12-01] MEDS: Methylergonovine 0.2 MG/1 ML Amp IM PRN ×2 (01:02→04:57)
[2020-12-01] MEDS ORDERED: Acetaminophen 500 MG Tab PO ONE (01:40)
[2020-12-01] MEDS ORDERED: Acetaminophen 500 MG Tab ONE (01:41)
[2020-12-01] MEDS ORDERED: Ondansetron 4 MG/2 ML SDV IVPUSH ONE (01:50)
[2020-12-01] MEDS ORDERED: HYDROmorphone 0.5 MG/0.5 ML Syringe IVPUSH ONE (01:50)
[2020-12-01] MEDS ORDERED: HYDROmorphone 0.5 MG/0.5 ML Syringe ONE (02:01)
[2020-12-01 04:42] VITALS: BP 123/82; PULSE 61
[2020-12-01] MEDS ORDERED: Methylergonovine 0.2 MG Tab PO ONE (05:52)
== END 2020-12-01 08:59 | disposition home or self-care (01) ==
LOC: JP.ED 23:04
DX: O72.0 Third-stage hemorrhage (principal); Z37.0 Single live birth; Z91.048 Other nonmedicinal substance allergy status
CPT/HCPCS: 36415; 85025; 85027; 85610; 85730; 86850; 86900; 86901; 96372; 96374; 96375; 99284-25; 99285; A9270-GY; J1170; J2210; J2405; J7030

== ENCOUNTER 2021-08-26 20:57 | Emergency (ER) | payer MEDICAID ==
[2021-08-26 21:02] VITALS: BP 113/74; PULSE 96
--- NOTE | 2021-08-26 21:58 | EDM.PDOCBH ---
ED HPI GENERAL MEDICAL PROBLEM - General Chief Complaint: Drug or Alcohol Abuse Stated Complaint: MEDICAL VIA [facility] Time Seen by Provider: 08/26/21 21:10 Source of Information: Reports: Patient, EMS History Limitations: Reports: Intoxication - History of Present Illness INITIAL COMMENTS - FREE TEXT/NARRATIVE: 31-year-old female brought in by ambulance after a near syncopal episode at home. She sent her significant other out for shopping list, and when he returned she seemed intoxicated. When he tried to stand her up she collapsed to the floor so he became concerned and called the ambulance. She appears to be quite intoxicated, although she said she only took "2 shots to relieve stress". She is currently Covid positive. No fevers or chills, no nausea or vomiting, sh e has no intention of self-harm. Onset: Unknown/Unsure Associated Symptoms: Reports: Cough, Malaise, Weakness - Related Data Allergies Allergy/AdvReac Type Severity Reaction Status Date / Time nickel Allergy Severe Rash Verified 11/30/20 23:19 Home Meds: Home Meds Pnv No.121/Iron/Folic Acid [ Multivitamin Tablet] 1 each PO DAILY 08/09/18 [History] hydrOXYzine HCL [Hydroxyzine HCl] 50 mg PO BEDTIME PRN 11/23/20 [History] Past Medical History - Past Health History Medical/Surgical History: Denies Medical/Surgical History HEENT History: Reports: Impaired Vision Other HEENT History: wears glasses Gastrointestinal History: Reports: PUD Other Gastrointestinal History: stomach ulcer X3 Genitourinary History: Reports: None NET WPF DEVELOPER History: Reports: , Other (See Below) Other NET WPF DEVELOPER History: 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 post hemorrhage 2020 Musculoskeletal History: Reports: None Dermatologic History: Reports: Psoriasis - Infectious Disease History Infectious Disease History: Reports: Chicken Pox, Novel Coronavirus - Past Surgical History HEENT Surgical History: Reports: None GI Surgical History: Reports: EGD Female Surgical History: Reports: LEEP Musculoskeletal Surgical History: Reports: Ganglion Cyst, Other (See Below) Other Musculoskeletal Surgeries/Procedures:: ganglian cysts removed from wrists x 3 Dermatological Surgical History: Reports: None Social & Family History - Family History Family Medical History: No Pertinent Family History - Tobacco Use Tobacco Use Status *Q: Never Tobacco User - Caffeine Use Caffeine Use: Reports: None Other Caffeine Use: not very frequently - Recreational Drug Use Recreational Drug Use: No ED ROS GENERAL - Review of Systems Review Of Systems: See Below Constitutional: Reports: Malaise. Denies: Fever, Chills HEENT: Denies: Throat Pain Respiratory: Reports: Cough (Lingering cough from recent Covid infection). Denies: Shortness of Breath GI/Abdominal: Denies: Nausea, Vomiting Skin: Reports: No Symptoms Neurological: Reports: Dizziness, Weakness. Denies: Headache Psychiatric: Reports: Anxiety ED EXAM, BEHAVIORAL HEALTH - Physical Exam Exam: See Below Exam Limited By: Intoxication General Appearance: Alert, No Apparent Distress Eye Exam: Bilateral Eye: Normal Inspection Head: Atraumatic Respiratory/Chest: No Respiratory Distress, Lungs Clear Cardiovascular: Regular Rate, Rhythm GI/Abdominal: Non-Tender Neurological: Alert, Other (Patient is currently over emotional, tearful, somewhat remorseful) Psychiatric: Depressed Mood, Tearful COURSE, BEHAVIORAL HEALTH COMP - Course Vital Signs: Last Vital Signs Temp 95.9 F L 08/26/21 20:59 Pulse 96 08/26/21 20:59 Resp 16 08/26/21 20:59 BP 113/74 08/26/21 20:59 Pulse Ox 97 08/26/21 20:59 Orders, Labs, Meds: Laboratory Tests 08/26/21 08/26/21 08/26/21 Range/Units 21:19 21:19 21:19 WBC 3.3 L (4.5-11.0) K/uL RBC 4.68 (3.30-5.50) M/uL Hgb 14.2 D (12.0-15.0) g/dL Hct 42.0 (36.0-48.0) % MCV 90 (80-98) fL MCH 30 (27-31) pg MCHC 34 (32-36) % Plt Count 212 (150-400) K/uL Neut % (Auto) 34.6 L (36-66) % Lymph % (Auto) 55.7 H (24-44) % [place] % (Auto) 7.6 H (2-6) % Eos % (Auto) 0.3 L (2-4) % Baso % (Auto) 1.8 H (0-1) % Sodium 149 H (140-148) mmol/L Potassium 3.7 (3.6-5.2) mmol/L Chloride 110 H (100-108) mmol/L Carbon Dioxide 25 (21-32) mmol/L Anion Gap 17.7 H (5.0-14.0) mmol/L BUN 11 (7-18) mg/dL Creatinine 0.8 (0.6-1.0) mg/dL Est Cr Clr Drug Dosing 111.00 mL/min Estimated GFR (MDRD) > 60 (>60) Glucose 98 (74-106) mg/dL Calcium 8.5 (8.5-10.1) mg/dL Ethyl Alcohol 270 mg/dL Re-Assessment/Re-Exam: Patient remained stable in the emergency room, EtOH returned 0.270. White count slightly low at 3300 which is typical for Covid infection. No treatment was needed, the rest of her labs were reassuring and she was discharged to the care of her parents. Departure - Departure Time of Disposition: 22:09 Disposition: Home, Self-Care 01 Clinical Impression: Near syncope Acute alcohol intoxication Qualifiers: Complication of substance-induced condition: uncomplicated Qualified Code(s): F10.920 - Alcohol use, unspecified with intoxication, uncomplicated - Discharge Information Instructions: Alcohol Intoxication, [id number] Referrals: PCP,Unknown [Primary Care Provider] - Forms: ED Department Discharge Care Plan Goals: Avoid any further alcohol intake tonight, stay hydrated and increase activity and diet as tolerated. Return if worsening or concerns. Sepsis Event Note (ED) - Evaluation Sepsis Screening Result: No Definite Risk - Focused Exam Vital Signs: Vital Signs Temp Pulse Resp BP Pulse Ox 08/26/21 20:59 95.9 F L 96 16 113/74 97
== END 2021-08-26 22:09 | disposition home or self-care (01) ==
LOC: JP.ED 20:57
DX: R55 Syncope and collapse (principal); F10.120 Alcohol abuse with intoxication, uncomplicated; Y90.8 Blood alcohol level of 240 mg/100 ml or more; Z91.048 Other nonmedicinal substance allergy status; Z86.16 Personal history of COVID-19
CPT/HCPCS: 36415; 80048; 80307; 85025; 99284

== ENCOUNTER 2021-09-15 06:29 | Day surgery (SDC) | payer MEDICAID ==
[2021-09-15] MEDS ORDERED: Bupivacaine 0.5% 50 ML MDV ONE (06:58)
[2021-09-15] MEDS ORDERED: Lidocaine 1% with EPINEPHrine 1:100,000 50 ML MDV ONE (06:59)
[2021-09-15] MEDS ORDERED: Sodium Chloride 0.9% 1,000 ML IV SCH (07:00)
[2021-09-15] MEDS ORDERED: Neostigmine Methylsulfate 1 MG/ML 5 ML Syringe ONE (07:13)
[2021-09-15] MEDS ORDERED: Dexamethasone 4 MG/ML SDV ONE (07:13)
[2021-09-15] MEDS ORDERED: Rocuronium 50 MG/5 ML Vial ONE (07:13)
[2021-09-15] MEDS ORDERED: Propofol 200 MG/20 ML SDV ONE (07:13)
[2021-09-15] MEDS ORDERED: Glycopyrrolate 0.2 MG/ML 5 ML MDV ONE (07:13)
[2021-09-15] MEDS ORDERED: Ondansetron 4 MG/2 ML SDV ONE (07:13)
[2021-09-15] MEDS ORDERED: fentaNYL 250 MCG/5 ML SDV ONE ×2 (07:15→08:09)
[2021-09-15] MEDS ORDERED: Benzocaine/Cetylpyridinium/Menthol Lozenge MUCMEM PRN (08:13)
[2021-09-15] MEDS ORDERED: fentaNYL 100 MCG/2 ML SDV IVPUSH PRN ×3 (08:13)
[2021-09-15] MEDS ORDERED: hydrOXYzine HCL 100 MG/2 ML SDV IM PRN (08:13)
[2021-09-15] MEDS ORDERED: Docusate Sodium 100 MG Cap PO PRN (08:13)
[2021-09-15] MEDS ORDERED: Zolpidem 5 MG Tab PO PRN (08:13)
[2021-09-15] MEDS ORDERED: Ondansetron 4 MG/2 ML SDV IVPUSH PRN (08:13)
[2021-09-15] MEDS ORDERED: Acetaminophen/HYDROcodone 325-5 MG Tab PO PRN (08:13)
[2021-09-15] MEDS ORDERED: Ropivacaine 44 ML, dexAMETHasone 8 MG, EPINEPHrine 0.4 MG, Sodium Chloride 0.9% 33.6 ML NERVRT SCH ×4 (08:15)
[2021-09-15] MEDS ORDERED: Ketorolac 30 MG/ML SDV ONE (08:23)
[2021-09-15] MEDS ORDERED: Scopolamine 1.5 MG Transdermal Patch TOP SCH ×2 (08:30→10:00)
[2021-09-15] MEDS ORDERED: metroNIDAZOLE/Normal Saline 500 MG in Premix Bag 1 BAG IV ONE (08:30)
[2021-09-15] MEDS ORDERED: ceFAZolin 2 GM in Premix Bag 1 BAG IV ONE (08:30)
[2021-09-15] MEDS ORDERED: Bupivacaine 0.5% 50 ML MDV INJECT ONE ×2 (08:34)
[2021-09-15] MEDS ORDERED: Lidocaine 1% with EPINEPHrine 1:100,000 50 ML MDV INJECT ONE ×2 (08:35)
[2021-09-15] MEDS ORDERED: SCOPOLAMINE PATCH CHECK TOP SCH (09:00)
--- NOTE | 2021-09-15 10:16 | OR ---
DATE OF PROCEDURE: 09/15/2021 SURGEON: Tashi Kerns MD PROCEDURES: 1. Transversus abdominis plane blocks bilaterally. 2. Rectus sheath blocks bilaterally. COMPLICATIONS: None. AVIONICS TEST TECHNICIAN: None. RISKS: Risks, benefits, alternatives, and limitations including, but not limited to, infection, bleeding, and injury to abdominal structures were explained to the patient and wished to proceed. PREOPERATIVE DIAGNOSIS: Pain management. POSTOPERATIVE DIAGNOSIS: Pain management. PROCEDURE IN DETAIL: The patient was placed in supine position and the left transversus plane was identified first. This was accessed using a 21-gauge needle, then 20% solution was injected under ultrasound guidance with a 13 megahertz ultrasound probe. This was then repeated on the right side. Bilateral rectus sheaths were also injected under direct visualization. All four procedures were performed in the same manner, same fashion, same technique, in the same sequence using the same equipment. At no time was the needle blindly advanced nor advanced into the peritoneum. The patient tolerated the procedure well. Tashi Kerns MD /[id number]
--- NOTE | 2021-09-15 10:16 | OR ---
DATE OF PROCEDURE: 09/15/2021 SURGEON: Tashi Kerns MD PROCEDURE: Laparoscopic cholecystectomy. COMPLICATIONS: None. PALLIATIVE CARE SPECIALIST: None. RISKS: Risks, benefits, alternatives, and limitations including, but not limited to infection, bleeding, common bile duct injury, cystic duct leaks, and other risks not listed here were explained to the patient who wished to proceed. PROCEDURE IN DETAIL: The patient was placed in supine position. A supraumbilical curvilinear incision was made. A Veress needle was used to enter the abdomen without abnormality and drop test was performed without abnormality. The abdomen was subsequently insufflated. This was followed by an additional 10 and two 5 mm ports. Gallbladder was retracted cephalad. The infundibulum was retracted inferolaterally. Using blunt dissection, a "clear view" of the gallbladder was obtained with a single pulsatile structure in the gallbladder and a single non-pulsatile structure in the gallbladder. These were subsequently clipped and transected. The remaining 1/3rd of the gallbladder was removed off the gallbladder bed without difficulty. This was delivered through the superior port without difficulty. The abdomen was re-insufflated. The liver bed was inspected for bleeding, none was noted. The pressure was dropped. None was noted again. The abdomen was irrigated again, liquid was removed. The liquid was then removed from the pelvis, left upper quadrant, right upper quadrant. The wounds were closed after irrigation with 3-0 Vicryl and 4-0 Vicryl in interrupted running fashion. The patient tolerated the procedure well. Tashi Kerns MD /[id number]
[2021-09-15 11:31] VITALS: BP 126/80; PULSE 56
== END 2021-09-15 12:19 | disposition home or self-care (01) ==
LOC: JP.SDS 06:29
PROVIDERS: ATTEND Surgery
DX: K81.1 Chronic cholecystitis (principal); Z79.899 Other long term (current) drug therapy; F17.210 Nicotine dependence, cigarettes, uncomplicated; Z91.048 Other nonmedicinal substance allergy status
CPT/HCPCS: 36415; 47562; 80053; 85025; A9270; J0171; J0690; J1100; J1885; J2405; J2704; J2710; J2795; J3010; J3490; J7030